=== PATIENT | male | born 1950 | race Caucasian/White ===

== ENCOUNTER 2022-04-01 15:42 | Inpatient (IN) ==
[2022-04-01 17:40] LABS: Basophils # (auto) 0.05 K/uL (0-0.2); Basophils % (auto) 0.3 %; Eosinophils # (auto) 0.12 K/uL (0-0.50); Eosinophils % (auto) 0.8 %; Hematocrit (blood only) 41.7 % (40.1-51.0); Hemoglobin 15.6 g/dl (14.0-18.0); Immature Granulocytes # (auto) 0.14 K/uL (0.00-0.02); Lymphocytes # (auto) 1.41 K/uL (1.2-3.4); Lymphocytes % (auto) 9.8 %; Mean Corpuscular Hemoglobin 34.8 pg (25.0-34.0); Mean Corpuscular Hgb Conc 37.4 g/dL (32.0-36.0); Mean Corpuscular Volume 93.1 fL (80.0-100.0); Mean Platelet Volume 10.4 fL (9.4-12.4); Monocytes # (auto) 1.16 K/uL (0.24-0.82); Neutrophils # (auto) 11.57 K/uL (1.4-6.5); Neutrophils % (auto) 80.1 %; Platelet Count 168 K/uL (130-400); RDW Coefficient of Variation 12.4 % (11.5-14.5); RDW Standard Deviation 42.3 fL (36.4-46.3); Red Blood Count 4.48 M/uL (4.63-6.08); White Blood Count 14.45 K/ul (4.8-10.8)
[2022-04-01 17:52] LABS: INR 1.2 (0.9-1.1); Partial Thromboplastin Time 26.7 Seconds (21.0-31.0)
[2022-04-01 18:36] LABS: Albumin Globulin Ratio 1.3 (0.9-2); Albumin Level 4.7 gm/dl (3.4-5.0); BUN Creatinine Ratio 24.6 (10-20); Bilirubin,Total 1.3 mg/dl (0.2-1.0); Calcium 9.9 mg/dl (8.5-10.1); Creatinine Clr Calc Pharmacy 64.2 ml/min; Est GFR (African American) 69.7 ml/min; Est GFR (Non-African American) 60.1 ml/min; Globulin 3.6 gm/dl (2.5-4.0); Potassium 4.5 mmol/L (3.5-5.1); Total Protein 8.3 gm/dl (6.0-8.3)
--- NOTE | 2022-04-01 20:22 | Emergency Department Note ---
Impression & Plan Pulmonary embolism, Edema, DVT (deep venous thrombosis), Hyperglycemia ED Provider Note NAME: MATEO JOSÉ AGE: 71 SEX: M : 1950 ARRIVES VIA: Walk-In INFORMANT: Patient ED PROVIDER(S): Bertin Heard DO CHIEF COMPLAINT: right leg swelling HPI: Patient is a 71-year-old male that presents to the ER for right lower extremity swelling. This started about 24 hours ago. He denies any chest pain or shortness of breath. No belly pain, nausea, vomiting, or diarrhea. He has pain behind his right knee and following this he started having swelling in his legs. No trauma. He does have a previous DVT back in . That was from a car trip. Denies any recent immobilization. No other exacerbating or remitting factors. Pain is currently a 6 out of 10. He took aspirin today to see if that would help with the pain and has mildly. ROS: See above HPI for pertinent positives & negatives. A total of 10 systems reviewed and were otherwise negative. PAST MEDICAL HISTORY:See Below PAST SURGICAL HISTORY:See Below FAMILY HISTORY:See Below SOCIAL HISTORY:See Below HOME MEDICATIONS:See Below ALLERGIES:See Below VITALS:See Below PHYSICAL EXAMINATION: GENERAL: Sitting up in bed, alert, well appearing, well nourished, no distress, non-toxic EYE EXAM: normal conjunctiva. OROPHARYNX: no exudate, no erythema, lips, buccal mucosa, and tongue normal and mucous membranes are moist NECK: supple, no nuchal rigidity, no adenopathy, non-tender LUNGS: Clear to auscultation. Normal chest wall mechanics HEART: no murmurs, S1 normal and S2 normal ABDOMEN: abdomen soft, non-tender, normo-active bowel sounds, no masses, no rebound or guarding. UPPER EXTREMITIES: upper extremities are grossly normal. LOWER EXTREMITIES: Right calf larger than left with mild pitting edema. DP and PT 2 out of 4. Gross sensation intact. Tenderness behind right popliteal dacia a. Flexion extension hip knee and ankle intact. NEURO EXAM: Normal sensorium, cranial nerves II-XII grossly intact, normal speech, no gross weakness of arms, no gross weakness of legs. MEDICAL DECISION MAKING: Patient is a 71-year-old male who presents the ER for swelling of the right lower extremity. IV was established blood work was obtained. Patient was persistently tachycardic while in the ER. Duplex of the right lower extremity shows extensive DVT. CT angio was obtained and shows a large right pulmonary artery PE. BMP with a mild leukocytosis of 14,000. No anemia. INR 1.2. BMP with elevated glucose 272. LFTs bilirubin was unremarkable. Troponin was negative. COVID was negative. CT angio of the chest per stat read showed extensive PE. Patient was placed on a heparin drip and bolus. No bleeding risk factors. No recent trauma, coughing up blood, vomiting blood, urinating blood or previous brain bleeds. Patient was updated bedside and admitted to the hospital for further work-up. Triage Nursing notes reviewed. Limited review of prior medical records performed Vital Signs: reviewed and remarkable for tachy Differential diagnosis: DVT, musculoskeletal, infection, joint effusion, trauma, lymphedema, idiopathic, CHF, as well as other pathologies. ER treatment provided: See below Diagnostics interpreted by me: ECG: Sinus tachycardia rate of 105 Left axis Inferior Q waves Septal Q waves QTC 438 Cardiac Monitoring: An order was placed for continuous cardiac monitoring. The monitor shows a rate of 101 with sinus rhythm. Laboratory studies: As stated above and show below. Imaging studies: CT angio of the chest as described above Duplex of the right lower extremity shows extensive DVT Consultation(s): Discussed with [facility] hospitalist Dr. Chapa approved for further evaluation Procedures: none Critical Care: I have personally spent 55 minutes of critical care time in the direct management of this patient. This includes bedside care, interpretation of diagnostic studies, and testing, discussion with consultants, patient, and family members, and other required patient management activities. This 55 minutes is in excess of all separately billable procedures. Past Med/Surg History Medical History Diabetes Dvt femoral (deep venous thrombosis) S/P LONG AIRLINE [id number] AND NO ISSUES SINCE Dyslipidemia Per records GERD (gastroesophageal reflux disease) UNDER CONTROL History of COVID-19 DX'D THIRD WEEK 04/2020 [facility] [place]-FEVER, FATIGUE-RECOVERED AT HOME-NO RESIDUAL SYMPTOMS Hypertension Per records Sleep apnea STOPPED USING CPAP Surgical History History of adenoidectomy History of colonoscopy History of nasal septoplasty History of tonsillectomy Family History Sister Family hx of colon cancer Other No family history of adverse response to anesthesia Social History Smoking Status: Unknown if ever smoked Second Hand Exposure: No; Hx Alcohol Use: Yes Hx Substance Use: No Preferred Language: Kosovan Communication Ability: Effective 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 Beliefs That Will Affect Care: None marital status: Current Living Situation: Spouse current occupational status: employed Feels Safe at Home: Yes Assistive Devices: Denture - Upper and Glasses Allergies Allergies Allergy/AdvReac Type Severity Reaction Status Date / Time No Known Drug Allergies Allergy Verified 04/01/22 22:51 Home Meds Home Medications Medication Instructions Recorded Confirmed aspirin 325 mg tablet 325 mg PO QAM 08/03/19 04/01/22 ascorbate calcium-bioflavonoid 1 tab PO 3XWK 10/11/20 04/01/22 1,000 mg-200 mg tablet ([place]oula-C with Bioflavonoids) cholecalciferol (vitamin D3) 125 125 mcg PO QAM 10/11/20 04/01/22 mcg (5,000 unit) tablet (Vitamin D3) coQ10 (ubiquinol) 100 mg capsule 100 mg PO QAM 10/11/20 04/01/22 multivitamin 1 tab PO QAM 10/11/20 04/01/22 cinnamon bark 500 mg capsule 1,000 mg PO DAILY 04/01/22 04/01/22 (Cinnamon) omega 3-bws-ild-fish oil 1,000 mg 1 cap PO DAILY 04/01/22 04/01/22 (120 mg-180 mg) capsule (Fish Oil) zinc acetate 50 mg (zinc) capsule 50 mg PO DAILY 04/01/22 04/01/22 Results & Data (ED) Vital Signs Vital Signs - 24 hr 04/01/22 15:50 04/01/22 20:21 04/01/22 22:14 Temperature 36.8 C Temperature Source Temporal Artery Scan Pulse Rate 116 H Pulse Rate [Finger] 108 H 123 H Pulse Rate from SpO2 Sensor Pulse Rhythm [Finger] Regular Pulse Strength [Finger] Normal Respiratory Rate 18 20 Respiratory Effort / Characteristics Non-Labored Non-Labored Spontaneous Respiratory Depth Normal Normal Respiratory Pattern Regular Blood Pressure 137/85 Blood Pressure [Left Arm] 155/92 H 154/64 H Blood Pressure Mean 102 Blood Pressure Mean [Left Arm] 113 94 Blood Pressure Position [Left Arm] Sitting Pulse Oximetry 95 94 98 Oxygen Delivery Method Room Air Room Air Room Air Sepsis Recent Fever Within 48 Hours No Sepsis New/Unexplained Change in Mental Status No Sepsis Action Taken by Nursing No Action Required 04/01/22 22:00 04/01/22 22:12 04/01/22 22:12 Temperature Temperature Source Pulse Rate 109 H 90 Pulse Rate [Finger] Pulse Rate from SpO2 Sensor 106 H 105 H Pulse Rhythm [Finger] Pulse Strength [Finger] Respiratory Rate 17 16 Respiratory Effort / Characteristics Respiratory Depth Respiratory Pattern Blood Pressure 139/75 Blood Pressure [Left Arm] Blood Pressure Mean 96 Blood Pressure Mean [Left Arm] Blood Pressure Position [Left Arm] Pulse Oximetry 95 96 Oxygen Delivery Method Sepsis Recent Fever Within 48 Hours Sepsis New/Unexplained Change in Mental Status Sepsis Action Taken by Nursing 04/01/22 22:30 04/01/22 22:30 04/01/22 23:00 Temperature Temperature Source Pulse Rate 107 H 106 H Pulse Rate [Finger] Pulse Rate from SpO2 Sensor 107 H 117 H Pulse Rhythm [Finger] Pulse Strength [Finger] Respiratory Rate 13 22 Respiratory Effort / Characteristics Respiratory Depth Respiratory Pattern Blood Pressure 128/68 Blood Pressure [Left Arm] Blood Pressure Mean 88 Blood Pressure Mean [Left Arm] Blood Pressure Position [Left Arm] Pulse Oximetry 95 81 L Oxygen Delivery Method Sepsis Recent Fever Within 48 Hours Sepsis New/Unexplained Change in Mental Status Sepsis Action Taken by Nursing 04/01/22 23:30 04/01/22 23:30 04/02/22 00:00 Temperature Temperature Source Pulse Rate 105 H 110 H Pulse Rate [Finger] Pulse Rate from SpO2 Sensor 105 H 111 H Pulse Rhythm [Finger] Pulse Strength [Finger] Respiratory Rate 23 15 Respiratory Effort / Characteristics Respiratory Depth Respiratory Pattern Blood Pressure 132/62 Blood Pressure [Left Arm] Blood Pressure Mean 85 Blood Pressure Mean [Left Arm] Blood Pressure Position [Left Arm] Pulse Oximetry 94 95 Oxygen Delivery Method Sepsis Recent Fever Within 48 Hours Sepsis New/Unexplained Change in Mental Status Sepsis Action Taken by Nursing 04/02/22 00:01 04/02/22 00:01 04/02/22 00:30 Temperature Temperature Source Pulse Rate 111 H 103 H Pulse Rate [Finger] Pulse Rate from SpO2 Sensor 113 H 104 H Pulse Rhythm [Finger] Pulse Strength [Finger] Respiratory Rate 19 24 Respiratory Effort / Characteristics Respiratory Depth Respiratory Pattern Blood Pressure 125/56 L Blood Pressure [Left Arm] Blood Pressure Mean 79 Blood Pressure Mean [Left Arm] Blood Pressure Position [Left Arm] Pulse Oximetry 94 96 Oxygen Delivery Method Sepsis Recent Fever Within 48 Hours Sepsis New/Unexplained Change in Mental Status Sepsis Action Taken by Nursing 04/02/22 00:30 04/02/22 01:00 04/02/22 01:00 Temperature Temperature Source Pulse Rate 108 H Pulse Rate [Finger] Pulse Rate from SpO2 Sensor 108 H Pulse Rhythm [Finger] Pulse Strength [Finger] Respiratory Rate 22 Respiratory Effort / Characteristics Respiratory Depth Respiratory Pattern Blood Pressure 119/61 114/62 Blood Pressure [Left Arm] Blood Pressure Mean 80 79 Blood Pressure Mean [Left Arm] Blood Pressure Position [Left Arm] Pulse Oximetry 95 Oxygen Delivery Method Sepsis Recent Fever Within 48 Hours Sepsis New/Unexplained Change in Mental Status Sepsis Action Taken by Nursing Laboratory Data Result diagrams: 04/01/22 17:26 04/01/22 17:26 Lab Results 04/01/22 04/01/22 04/01/22 Range/Units 17:26 17:26 17:26 WBC 14.45 H (4.8-10.8) K/ul RBC 4.48 L (4.63-6.08) M/uL Hgb 15.6 (14.0-18.0) g/dl Hct 41.7 (40.1-51.0) % MCV 93.1 (80.0-100.0) fL MCH 34.8 H (25.0-34.0) pg MCHC 37.4 H (32.0-36.0) g/dL RDW Std Deviation 42.3 (36.4-46.3) fL RDW Coeff of Carol 12.4 (11.5-14.5) % Plt Count 168 (130-400) K/uL MPV 10.4 (9.4-12.4) fL Immature Gran % (Auto) 1.0 % Neut % (Auto) 80.1 % Lymph % (Auto) 9.8 % [place] % (Auto) 8.0 % Eos % (Auto) 0.8 % Baso % (Auto) 0.3 % Neut # (Auto) 11.57 H (1.4-6.5) K/uL Lymph # (Auto) 1.41 (1.2-3.4) K/uL [place] # (Auto) 1.16 H (0.24-0.82) K/uL Eos # (Auto) 0.12 (0-0.50) K/uL Baso # (Auto) 0.05 (0-0.2) K/uL Immature Gran # (Auto) 0.14 H (0.00-0.02) K/uL PT 13.0 H (9.0-12.0) Seconds INR 1.2 H (0.9-1.1) APTT 26.7 (21.0-31.0) Seconds PTT Ratio 1.0 Sodium 133 L (136-145) mmol/L Potassium 4.5 (3.5-5.1) mmol/L Chloride 98 (98-107) mmol/L Carbon Dioxide 25 (21-32) mmol/L Anion Gap 10 (3-11) BUN 30 H (6-23) mg/dl Creatinine 1.22 (0.6-1.4) mg/dl Est Cr Clr Drug Dosing 64.2 ml/min Est GFR ( Amer) 69.7 ml/min Est GFR (Non-Af Amer) 60.1 ml/min BUN/Creatinine Ratio 24.6 H (10-20) Glucose 272 H (70-99(Fasting)) mg/dl Calcium 9.9 (8.5-10.1) mg/dl Total Bilirubin 1.3 H (0.2-1.0) mg/dl AST 33 (13-39) U/L ALT 35 (7-52) U/L Alkaline Phosphatase 81 (34-104) U/L Troponin I High Sens (0-20) pg/ml Total Protein 8.3 (6.0-8.3) gm/dl Albumin 4.7 (3.4-5.0) gm/dl Globulin 3.6 (2.5-4.0) gm/dl Albumin/Globulin Ratio 1.3 (0.9-2) SARS-CoV-2, RNA, NAAT (NEGATIVE) 04/01/22 04/01/22 Range/Units 21:45 21:45 WBC (4.8-10.8) K/ul RBC (4.63-6.08) M/uL Hgb (14.0-18.0) g/dl Hct (40.1-51.0) % MCV (80.0-100.0) fL MCH (25.0-34.0) pg MCHC (32.0-36.0) g/dL RDW Std Deviation (36.4-46.3) fL RDW Coeff of Carol (11.5-14.5) % Plt Count (130-400) K/uL MPV (9.4-12.4) fL Immature Gran % (Auto) % Neut % (Auto) % Lymph % (Auto) % [place] % (Auto) % Eos % (Auto) % Baso % (Auto) % Neut # (Auto) (1.4-6.5) K/uL Lymph # (Auto) (1.2-3.4) K/uL [place] # (Auto) (0.24-0.82) K/uL Eos # (Auto) (0-0.50) K/uL Baso # (Auto) (0-0.2) K/uL Immature Gran # (Auto) (0.00-0.02) K/uL PT (9.0-12.0) Seconds INR (0.9-1.1) APTT (21.0-31.0) Seconds PTT Ratio Sodium (136-145) mmol/L Potassium (3.5-5.1) mmol/L Chloride (98-107) mmol/L Carbon Dioxide (21-32) mmol/L Anion Gap (3-11) BUN (6-23) mg/dl Creatinine (0.6-1.4) mg/dl Est Cr Clr Drug Dosing ml/min Est GFR ( Amer) ml/min Est GFR (Non-Af Amer) ml/min BUN/Creatinine Ratio (10-20) Glucose (70-99(Fasting)) mg/dl Calcium (8.5-10.1) mg/dl Total Bilirubin (0.2-1.0) mg/dl AST (13-39) U/L ALT (7-52) U/L Alkaline Phosphatase (34-104) U/L Troponin I High Sens 10.7 (0-20) pg/ml Total Protein (6.0-8.3) gm/dl Albumin (3.4-5.0) gm/dl Globulin (2.5-4.0) gm/dl Albumin/Globulin Ratio (0.9-2) SARS-CoV-2, RNA, NAAT NEGATIVE (NEGATIVE) Administered Medications Heparin Sodium/Dextrose (Heparin Sodium/Dextrose) 25,000 units in 500 mls @ 29 mls/hr IV .[id number] [facility]; Protocol Stop: 05/01/22 21:44 Last Admin: 04/01/22 22:07 Dose: 1,450 units/hr, 29 mls/hr Documented By: QGV Co-signed By: BRIE Discontinued Medications Heparin Sodium (Porcine) (Heparin Sod (Porcine) 1000 Unit/Ml) 6,000 units IV NOW ONE Stop: 04/01/22 22:16 Last Admin: 04/01/22 22:07 Dose: 6,000 units Documented By: QGV Co-signed By: BRIE Ioversol (Optiray 320 500ml) 110 ml IV ONCE ONE Stop: 04/01/22 21:45 Last Admin: 04/01/22 21:44 Dose: 110 ml Documented By: DG Imaging Data Radiologist's Impression: Venous Doppler Study 04/01/22 19:36 US venous doppler LE RT CLINICAL HISTORY: swelling, eval DVT TECHNIQUE: Right lower extremity real-time compression venous ultrasound with Color Doppler imaging. Utilizing real-time ultrasonic imaging multiple real time high-resolution ultrasonic images with compression and noncompression maneuvers of the deep venous system in addition to color doppler imaging were performed from the common femoral vein through the proximal calf veins. COMPARISON: None available at the time of this dictation. FINDINGS: There is a venous thrombus extending from the right common femoral vein to the popliteal vein, proximal posterior tibial vein, and gastrocnemius. This appears occlusive. There is limited flow in the anterior tibial and peroneal veins. Impression: Occlusive thrombus extending from the right common femoral vein to the popliteal popliteal, proximal posterior tibial vein, and gastrocnemius vein. ACT 112: Negative or not required by law. Electronically signed by: Silvio Rowe M.D. 04/01/2022 8:48 PM Knee X-Ray 04/01/22 20:10 XR knee RT 3V CLINICAL HISTORY: r knee pain TECHNIQUE: 3 views of the right knee were obtained. Comparison: None available at the time of this dictation. FINDINGS: There is no evidence of an acute fracture. Joint spaces are well-preserved. No joint effusion is seen. A calcific density in the posterior knee may represent a fabella. IMPRESSION: No evidence of acute osseous injury. ACT 112: Negative or not required by law. Electronically signed by: Silvio Rowe M.D. 04/01/2022 8:35 PM Discharge Plan Visit Data Chief Complaint: Swelling/Edema to Extremity Stated Complaint: LOWER RIGHT LEG SWOLLEN DOUBLE SIZE ED Provider: Bertin Heard Discharge Problem: Pulmonary embolism, Edema, DVT (deep venous thrombosis), Hyperglycemia Forms Stand Alone Forms: My [facility] [place] [employer] Prescriptions Prescriptions: No Action aspirin 325 mg tablet 325 mg PO QAM zinc acetate 50 mg (zinc) Capsule 50 mg PO DAILY cinnamon bark [Cinnamon] 500 mg Capsule 1,000 mg PO DAILY omega 0-eih-kkz-fish oil [Fish Oil] 1,000 mg (120 mg-180 mg) Capsule 1 cap PO DAILY multivitamin Tablet 1 tab PO QAM cholecalciferol (vitamin D3) [Vitamin D3] 125 mcg (5,000 unit) Tablet 125 mcg PO QAM coQ10 (ubiquinol) 100 mg Capsule 100 mg PO QAM [place]oula-C with Bioflavonoids 1,000-200 mg Tablet 1 tab PO 3XWK Referrals Referrals: Jeffry Knapp MD [Primary Care Provider] -
--- NOTE | 2022-04-01 20:38 | XRay Report ---
XR knee RT 3V CLINICAL HISTORY: r knee pain TECHNIQUE: 3 views of the right knee were obtained. Comparison: None available at the time of this dictation. FINDINGS: There is no evidence of an acute fracture. Joint spaces are well-preserved. No joint effusion is seen . A calcific density in the posterior knee may represent a fabella. IMPRESSION: No evidence of acute osseous injury. ACT 112: Negative or not required by law. Electronically signed by: Silvio Rowe M.D. 04/01/2022 8:35 PM
--- NOTE | 2022-04-01 20:50 | Ultrasound Report ---
US venous doppler LE RT CLINICAL HISTORY: swelling, eval DVT TECHNIQUE: Right lower extremity real-time compression venous ultrasound with Color Doppler imaging. Utilizing real-time ultrasonic imaging multiple real time high-resolution ultrasonic images with comp ression and noncompression maneuvers of the deep venous system in addition to color doppler imaging w ere performed from the common femoral vein through the proximal calf veins. COMPARISON: None available at the time of this dictation. FINDINGS: There is a venous thrombus extending from the right common femoral vein to the popliteal vein, proxim al posterior tibial vein, and gastrocnemius. This appears occlusive. There is limited flow in the ant erior tibial and peroneal veins. Impression: Occlusive thrombus extending from the right common femoral vein to the popliteal popliteal, proximal posterior tibial vein, and gastrocnemius vein. ACT 112: Negative or not required by law. Electronically signed by: Silvio Rowe M.D. 04/01/2022 8:48 PM
[2022-04-01] MEDS ORDERED: Heparin IV Adult Wt-Based Standard WITH Bolus Protocol IV STA (21:18)
[2022-04-01] MEDS ORDERED: HEPARIN SOD (PORCINE) 1000 UNIT/ML IV ONE ×2 (21:33→22:15)
[2022-04-01] MEDS ORDERED: OPTIRAY 320 500ml IV ONE (21:44)
[2022-04-01] MEDS: HEPARIN SODIUM/DEXTROSE 25,000 UNITS/500 ML BAG IV SCH (22:07)
--- NOTE | 2022-04-02 01:59 | History and Physical Report ---
DATE OF ADMISSION: 04/01/2022. CHIEF COMPLAINT: Lower extremity edema, found to have DVT and PE. HISTORY OF PRESENT ILLNESS: A 71-year-old male with past medical history significant for type 2 diabetes, hyperlipidemia, obstructive sleep apnea, difficult intubation, high triglycerides, history of DVT long time back. Presents with right lower extremity swelling since yesterday, pain in the leg. Came to the ER. Currently, also feeling somehow little bit short of breath. Denies any chest pain, no fevers, no nausea, no vomiting, no abdominal pain. Normal bowel and bladder movements. No blood in the stools or black stools. No headache, no blurred visions, no earache, no runny nose, no sore throat. Appetite is okay. Resting comfortably, hemodynamically stable, saturating okay. ALLERGIES: No known drug allergies. PAST MEDICAL HISTORY: As mentioned above. PAST SURGICAL HISTORY: Colonoscopy, colonoscopy with biopsy, tonsillectomy and adenoidectomy, repair of nasal septum. MEDICATIONS: The patient is on aspirin 325 mg p.o. daily, vitamin D 125 mcg p.o. daily, multivitamins 1 tablet p.o. daily, fish oil 1 capsule p.o. daily, zinc acetate 50 mg p.o. daily. FAMILY HISTORY: Significant for father has heart disorder; mother has thyroid disease; brother has sleep apnea; sister has sleep apnea. SOCIAL HISTORY: , quit smoking in 1996, smoked 1 pack a day for 30 years. Alcohol, social drinking. No drug use. REVIEW OF SYSTEMS: As per HPI. Rest of the review of systems is negative. PHYSICAL EXAMINATION: GENERAL: The patient is of moderate build, not in acute distress. VITAL SIGNS: Temperature 36.8, pulse 108, respiratory rate 20, blood pressure 154/64, oxygen 98% on room air. HEENT: Pupils equal, round and reactive to light. Oral mucosa moist. NECK: No JVD. No neck masses. CARDIOVASCULAR: S1 and S2 heard. No murmur, no gallop. RESPIRATORY SYSTEM: Normal AP diameter. No accessory muscle use. No wheezing, no crackles. ABDOMEN: Soft, bowel sounds present, nontender, no distention. CENTRAL NERVOUS SYSTEM: Cranial nerves II through XII are grossly intact, nonfocal. EXTREMITIES: Right lower extremity swollen and slightly warm to palpation. CURRENT LABORATORY DATA: WBC 14.4, hemoglobin 15.6, hematocrit 41.7, platelets 168. PT 13, INR 1.2, APTT 26.7. Sodium 133, potassium 4.5, chloride 98, bicarbonate 25, BUN 30, creatinine 1.2, serum glucose 272, calcium 9.9, total bilirubin 1.3, AST 33, ALT 35, alkaline phosphatase 81. Troponin I high sensitivity 10.7. SARS-CoV-2 rapid test negative. IMAGING DATA: Knee x-ray, no acute findings. Venous Doppler, occlusive thrombus extending from the right common femoral vein to the popliteal, proximal posterior tibial, and gastrocnemius vein. CTA chest, preliminary report shows extensive pulmonary emboli in the right main pulmonary artery extending into the segmental and subsegmental branches. Positive for right heart strain. EKG: Sinus tachycardia with a rate of 105. ASSESSMENT AND PLAN: This is a 71-year-old male who presents with lower extremity swelling in the right lower extremity and found to have deep venous thrombosis and also pulmonary embolism. 1. Deep venous thrombosis and pulmonary embolism, extensive. Preliminary report of CAT scan showing right heart strain. His troponin level is okay. Started on IV heparin, which will be continued. Will follow the echocardiogram. Monitor in the tele. Consult cardiology in the a.m. Has remote history of deep venous thrombosis, may need to cut back on aspirin to 81 mg. 2. Sleep apnea: On CPAP at bedtime. 3. Diabetes: Placed on insulin sliding scale. Follow the blood sugars. 4. Deep venous thrombosis prophylaxis: On IV heparin. DISPOSITION: Closely monitor in the tele floor. Level 1 full code. Job ID: [id number] [facility]
[2022-04-02] MEDS ORDERED: NITROGLYCERIN SL 0.4 MG/TAB TAB SL PRN (02:12)
[2022-04-02] MEDS ORDERED: ACETAMINOPHEN 325 MG TAB PO PRN (02:12)
[2022-04-02] MEDS ORDERED: SODIUM CHLORIDE 0.9% 1000ML 1,000 ML IV SCH (02:12)
[2022-04-02] MEDS ORDERED: POLYETHYLENE (MIRALAX) 17 GM PACK PO PRN (02:12)
[2022-04-02 03:24] LABS: Appearance Urine Clear (Clear); Bacteria Urine Automated Negative (Negative); Bilirubin Urine Negative (Negative); Blood Urine Negative (Negative); Color Urine Yellow; Epithelial Cell Urine Auto 0-5 /lpf (0-5); Glucose Urine UA 3+ (Negative); Ketones Urine 2+ (Negative); Leukocyte Esterase Urine Negative (Negative); Nitrite Urine Negative (Negative); Protein Urine Trace (Negative); RBC Urine Automated 0-4 /hpf (0-4); Specific Gravity Urine > 1.045 (1.000-1.030); Urobilinogen Urine Negative (Negative); WBC Urine Automated 0 /hpf (0-5)
[2022-04-02 04:02] LABS: BUN Creatinine Ratio 21.6 (10-20); Creatinine Clr Calc Pharmacy 71.7 ml/min; Est GFR (African American) 86.5 ml/min; Est GFR (Non-African American) 74.6 ml/min; Magnesium 1.8 mg/dl (1.7-2.4); Potassium 4.2 mmol/L (3.5-5.1)
[2022-04-02 04:08] LABS: Troponin I High Sensitivity 11.2 pg/ml (0-20)
[2022-04-02 04:11] LABS: Partial Thromboplastin Ratio 2.7
[2022-04-02 04:40] LABS: Partial Thromboplastin Time 74.3 Seconds (21.0-31.0)
[2022-04-02 04:56] LABS: Basophils # (auto) 0.04 K/uL (0-0.2); Basophils % (auto) 0.3 %; Eosinophils # (auto) 0.29 K/uL (0-0.50); Eosinophils % (auto) 2.4 %; Hematocrit (blood only) 36.5 % (40.1-51.0); Immature Granulocytes # (auto) 0.12 K/uL (0.00-0.02); Lymphocytes # (auto) 1.42 K/uL (1.2-3.4); Lymphocytes % (auto) 11.9 %; Mean Corpuscular Hemoglobin 34.9 pg (25.0-34.0); Mean Corpuscular Hgb Conc 38.4 g/dL (32.0-36.0); Mean Platelet Volume 10.9 fL (9.4-12.4); Monocytes # (auto) 1.09 K/uL (0.24-0.82); Monocytes % (auto) 9.2 %; Neutrophils # (auto) 8.94 K/uL (1.4-6.5); Neutrophils % (auto) 75.2 %; Nucleated RBC # (auto) 0.02 K/uL (0-0); Nucleated RBC % (auto) 0.2 %; Platelet Count 143 K/uL (130-400); RDW Coefficient of Variation 12.4 % (11.5-14.5); RDW Standard Deviation 41.3 fL (36.4-46.3); Red Blood Count 4.01 M/uL (4.63-6.08)
[2022-04-02 06:41] LABS: Estimated Average Glucose 203 mg/dl; Hemoglobin A1C 8.7 % (4.5-5.6)
--- NOTE | 2022-04-02 07:43 | CT Scan Report ---
CT angio chest PE protocol CT DOSE: 809.71 mGy.cm HISTORY: 71 years-old Male with extensive dvt. Acute shortness breath with DVT TECHNIQUE: Multiple CTA images of the chest were obtained after the intravenous administration of 110 ml Optiray. Coronal and sagittal MIPS were obtained from the axial data set and were submitted for review. All measurements were obtained according to NASCET criteria. A dose lowering technique was u tilized adhering to the principles of ALARA. COMPARISON: Duplex venous Doppler study of same day FINDINGS: CTA: The heart is normal in size. No pericardial effusion. Extensive coronary artery calcifications. Ather osclerosis of the thoracic aorta without aneurysm or dissection. There is a large amount of acute casi earing emboli within the right main pulmonary artery extending into the right lobar, segmental and roth bsegmental branches. Additional segmental and subsegmental left-sided pulmonary emboli. Mild straight ening of the intraventricular septum. CT CHEST: Right sided thyroid goiter. No lymphadenopathy identified. No pneumothorax, pleural effusion, airspac e consolidation or overt pulmonary edema. No pulmonary infarct identified. There are a few punctate c alcified pulmonary granulomata noted. Central airways are patent. Hypodense paravertebral lesions of the lower thoracic spine measure up to 3.5 cm on image 95 series 4, possibly nerve sheath tumors. Mild nonspecific distal esophageal wall thickening with tiny hiatal hernia. Calcified granulomata of the spleen. Degenerative changes of the shoulders and spine. Right s houlder rotator cuff calcific tendinosis. No acute fracture identified. IMPRESSION: 1. Extensive pulmonary emboli as above. Straightening of the intraventricular septum is suspicious fo r associated right heart strain. 2. No pleural effusion or pulmonary infarct identified. 3. Paravertebral lesions of the lower thoracic spine, possibly nerve sheath tumors. ACT 112: Negative or not required by law. The above report was generated using voice recognition software. It may contain grammatical, syntax o r spelling errors. Electronically signed by: Ab Garcia M.D. 04/02/2022 7:40 AM
[2022-04-02] MEDS: CHOLECALCIFEROL 5,000 UNITS 125 MCG TAB PO SCH (08:06)
[2022-04-02] MEDS: MULTIVITAMIN TAB PO SCH (08:06)
[2022-04-02] MEDS: ASPIRIN 325 MG ECTAB PO SCH (08:07)
[2022-04-02] MEDS: INSULIN ASPART PER UNIT SC SCH ×4 (08:10→20:19)
[2022-04-02 11:04] LABS: Partial Thromboplastin Ratio 2.1
[2022-04-02 11:12] LABS: Partial Thromboplastin Time 57.9 Seconds (21.0-31.0)
--- NOTE | 2022-04-02 11:14 | Electrocardiogram Report ---
Test Reason : Blood Pressure : / mmHG Vent. Rate : 105 BPM Atrial Rate : 105 BPM P-R Int : 194 ms QRS Dur : 076 ms QT Int : 332 ms P-R-T Axes : 028 -27 012 degrees QTc Int : 438 ms Poor data quality, interpretation may be adversely affected Sinus tachycardia possible Inferior infarct , age undetermined Anteroseptal infarct , age undetermined Abnormal ECG When compared with ECG of 07-FEB-1997 06:59, Anteroseptal infarct is now Present Inferior infarct is now Present T wave amplitude has decreased in Anterior leads Confirmed by Senthil Patten ([id number]) on 04/02/2022 11:13:50 AM Referred By: REFERRED SELF Confirmed By:Carroll Patten
--- NOTE | 2022-04-02 14:28 | Hospitalist Progress Note ---
Date of Service April 02, 2022 Assessment & Plan (1) Pulmonary embolism: (2) DVT (deep venous thrombosis): Plan 71-year-old male with PMH of DVT [during/after long travel, status post Coumadin], T2DM, HLD, KALEY, difficult intubation, HLD presented 04/01 to our ED with complaint of lower extremity swelling especially RLE and was found to have DVT and PE in the ED. He is being managed for the following: DVT and PE, extensive: Admitting imaging: RLE Doppler positive for DVT. CTA chest positive for extensive PE bilaterally with mild straightening of the intraventricular septum. No pleural effusion or pulmonary infarct identified. 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 Admitting as with 15.6, troponin trends x2 are negative. 04/02 echo: Mild concentric LVH, EF 50 to 55%, borderline right ventricular enlar gement with RVSP mildly elevated at 30 to 40 mmHg. Patient started on heparin drip, continue same, patient interested in Eliquis, cost of Eliquis is $94 a month. Continue telemetry monitoring, cardiology consult for right heart strain. Patient will benefit from hematology/oncology eval as an outpatient for his hypercoagulability eval as well as paravertebral lesion of the lower thoracic spine on imaging. Sleep apnea: History of, on CPAP at bedtime Other chronic medical conditions: DM [on sliding scale while in hospital], history of DVT, HTN, HLD--> continue/resume home meds as and when able. DVT prophylaxis: Patient on heparin drip Full code Admission and Anticipated Discharge Date Admission Date: April 01, 2022 Subjective Patient seen and examined at bedside as a follow-up of DVT and PE. Patient was lying in bed, on room air, NAD, denies any new acute event overnight, patient's family member at bedside, reports eating okay and moving bowels okay, reports no shortness of breath or headache or dizziness, denies fever or chills or sore throat, denies other review of symptoms. Physical Exam Physical Exam: GENERAL: Alert and oriented x3. NAD, on RA. HEENT: No pallor, no icterus. Pupils equal, round and reactive to light. Oral mucosa moist. NECK: No JVD, no neck masses. HEART: S1 and S2 heard. Regular rate and rhythm. No murmur, no gallop. RESPIRATORY SYSTEM: Normal AP diameter. No accessory muscle use. No wheezing, no crackles. ABDOMEN: Soft, bowel sounds present, nontender, no distention. CENTRAL NERVOUS SYSTEM: No facial droop. Speech is clear. Obeys simple commands. Moves extremities. EXTREMITIES: 1+ BLE edema, no erythema seen. Results & Data Results & Data ([facility]) Vital Signs (Past 12 Hours) Vital Signs Temp Pulse Pulse Resp BP Pulse Ox O2 Del Method 04/02/22 06:10 98 H 04/02/22 11:31 36.9 C 80 18 117/75 95 Room Air 04/02/22 08:05 Room Air 04/02/22 07:46 36.9 C 99 H 18 122/76 93 Room Air
--- NOTE | 2022-04-02 14:46 | Cardiology Consultation ---
Date of Consultation April 02, 2022 Assessment & Plan (1) Pulmonary embolism: (2) DVT (deep venous thrombosis): Plan Patient is a 71-year-old male who presents with extensive DVT and submassive pulmonary emboli, hemodynamically without compromise, minimal oxygen demands. CT scan suggest right ventricular strain. Echocardiogram today demonstrates very minimal enlargement of the right ventricle with normal function and mild elevation of pulmonary pressures. No evidence of right ventricular overload or dysfunction Would treat as standard for pulmonary embolus, maintain telemetry additional 24 hours given mild strain Given past DVT and pattern of thickening of the aortic valve leaflets would consider hypercoagulable evaluation including antiphospholipid antibody EKG will be repeated today History of Present Illness Reason for Consultation: Pulmonary embolus Requesting Physician: Dr. Ramírez Attending Physician: Eleni Ramírez MD History of Present Illness Patient is a 71-year-old male with ongoing issues 1. Acute extensive right leg DVT, pulmonary embolus 2. Past provoked left DVT 1996 (long travel) 3. Type 2 diabetes mellitus 4. Hyperlipidemia on therapy Patient presents this admission noting having developed swelling in his right l eg acutely worse over the past 2 days with associated pain behind his knee. Mild breathlessness on presentation. Evaluation demonstrated extensive DVT and evidence of multiple pulmonary emboli. CT scan suggestion of pulmonary strain pattern Patient referred now for further evaluation Currently hemodynamically stable with no O2 requirements. No chest pains, no dizziness or lightheadedness. No fevers chills or unexplained infections. Notes no acute weight loss or gain notes no bleeding difficulties. He is currently anticoagulated appropriately with IV heparin. Denies any prior history of cardiac disease, rheumatic fever, scarlet fever or heart murmur. Possible "scarlatina as a child". No history of TIA or stroke. No fevers chills or unexplained infections currently. Family history notable for valvular heart disease in father, brother with recent coronary stents Allergies Allergy/AdvReac Type Severity Reaction Status Date / Time No Known Drug Allergies Allergy Verified 04/01/22 22:51 Home Medications Medication Instructions Recorded Confirmed Type aspirin 325 mg tablet 325 mg PO QAM 08/03/19 04/01/22 History ascorbate calcium-bioflavonoid 1 tab PO 3XWK 10/11/20 04/01/22 History 1,000 mg-200 mg tablet ([place]-C with Bioflavonoids) cholecalciferol (vitamin D3) 125 125 mcg PO QAM 10/11/20 04/01/22 History mcg (5,000 unit) tablet (Vitamin D3) coQ10 (ubiquinol) 100 mg capsule 100 mg PO QAM 10/11/20 04/01/22 History multivitamin 1 tab PO QAM 10/11/20 04/01/22 History cinnamon bark 500 mg capsule 1,000 mg PO DAILY 04/01/22 04/01/22 History (Cinnamon) omega 4-aay-mfz-fish oil 1,000 mg 1 cap PO DAILY 04/01/22 04/01/22 History (120 mg-180 mg) capsule (Fish Oil) zinc acetate 50 mg (zinc) capsule 50 mg PO DAILY 04/01/22 04/01/22 History apixaban 5 mg tablet (Eliquis) 5 mg PO BID #74 tabs 04/02/22 Rx Patient History Medical History Diabetes Dvt femoral (deep venous thrombosis) S/P LONG AIRLINE [id number] AND NO ISSUES SINCE Dyslipidemia Per records GERD (gastroesophageal reflux disease) UNDER CONTROL History of COVID-19 DX'D THIRD WEEK 04/2020 [place]-FEVER, FATIGUE-RECOVERED AT HOME-NO RESIDUAL SYMPTOMS Hypertension Per records Sleep apnea STOPPED USING CPAP Surgical History History of adenoidectomy History of colonoscopy History of nasal septoplasty History of tonsillectomy Family History Sister Family hx of colon cancer Other No family history of adverse response to anesthesia Social History Smoking Status: Former smoker Smoking End Date: 1996; Second Hand Exposure: No; Hx Alcohol Use: Yes Alcohol type: beer Hx Substance Use: No Preferred Language: [place] Communication Ability: Effective Geology Associate Required: No Beliefs That Will Affect Care: None marital status: Current Living Situation: Spouse Current Living Situation Comment: with current occupational status: employed Feels Safe at Home: Yes Safety Concerns: Feels Safe At This Time Assistive Devices: None Review of Systems Review of Systems: All systems reviewed & are unremarkable except as noted in HPI & below and All systems reviewed & are unremarkable except as noted in Subje ctive Physical Exam Constitutional: WD/WN, vitals as above + obese; no acute distress Eyes: PERRL, conjunctivae normal, anicteric sclerae ENMT: external ear and nose normal, oropharynx normal Neck: trachea midline, no thyromegaly Respiratory: normal respiratory effort, lungs clear to auscultation Cardiovascular: Rate/Rhythm: regular rate and regular rhythm Heart Sounds: normal S1 and normal S2; no gallop and no murmur Palpation: normal PMI Vessels: normal carotid upstroke and radial pulses present; no JVD and no carotid bruit Extremities: + calf tenderness and + edema (2-3+ edema right leg thigh and lower ) Gastrointestinal (Abdomen): normal bowel sounds, soft, nontender, no hepatosplenomegaly Musculoskeletal: no cyanosis or clubbing, extremities motor strength 5/5 Skin: no rashes, warm and dry Neurologic: PERRL, EOMI, accommodation nl, no face palsy, no dysarthria Psychiatric: A+Ox3, euthymic affect Results [facility]) Vital Signs (Past 12 Hours) Vital Signs Temp Pulse Pulse Resp BP Pulse Ox O2 Del Method 04/02/22 06:10 98 H 04/02/22 11:31 36.9 C 80 18 117/75 95 Room Air 04/02/22 08:05 Room Air 04/02/22 07:46 36.9 C 99 H 18 122/76 93 Room Air Laboratory Results Laboratory Results - last 24 hr 04/01/22 04/01/22 04/01/22 17:26 17:26 17:26 WBC 14.45 H RBC 4.48 L Hgb 15.6 Hct 41.7 MCV 93.1 MCH 34.8 H MCHC 37.4 H RDW Std Deviation 42.3 RDW Coeff of Carol 12.4 Plt Count 168 MPV 10.4 Immature Gran % (Auto) 1.0 Neut % (Auto) 80.1 Lymph % (Auto) 9.8 [place] % (Auto) 8.0 Eos % (Auto) 0.8 Baso % (Auto) 0.3 Neut # (Auto) 11.57 H Lymph # (Auto) 1.41 [place] # (Auto) 1.16 H Eos # (Auto) 0.12 Baso # (Auto) 0.05 Immature Gran # (Auto) 0.14 H Absolute Nucleated RBC Nucleated RBC % (auto) PT 13.0 H INR 1.2 H APTT 26.7 PTT Ratio 1.0 Sodium 133 L Potassium 4.5 Chloride 98 Carbon Dioxide 25 Anion Gap 10 BUN 30 H Creatinine 1.22 Est Cr Clr Drug Dosing 64.2 Est GFR ( Amer) 69.7 Est GFR (Non-Af Amer) 60.1 BUN/Creatinine Ratio 24.6 H Glucose 272 H POC Glucose Estimat Average Glucose Hemoglobin A1c Calcium 9.9 Magnesium Total Bilirubin 1.3 H AST 33 ALT 35 Alkaline Phosphatase 81 Troponin I High Sens Total Protein 8.3 Albumin 4.7 Globulin 3.6 Albumin/Globulin Ratio 1.3 Urine Color Urine Appearance Urine pH Ur Specific [place] Urine Protein Urine Glucose (UA) Urine Ketones Urine Blood Urine Nitrite Urine Bilirubin Urine Urobilinogen Ur Leukocyte Esterase Urine WBC (Auto) Urine RBC (Auto) U Hyaline Cast (Auto) U Epithel Cells (Auto) Urine Bacteria (Auto) SARS-CoV-2, RNA, NAAT 04/01/22 04/01/22 04/02/22 21:45 21:45 02:20 WBC RBC Hgb Hct MCV MCH MCHC RDW Std Deviation RDW Coeff of Carol Plt Count MPV Immature Gran % (Auto) Neut % (Auto) Lymph % (Auto) [place] % (Auto) Eos % (Auto) Baso % (Auto) Neut # (Auto) Lymph # (Auto) [place] # (Auto) Eos # (Auto) Baso # (Auto) Immature Gran # (Auto) Absolute Nucleated RBC Nucleated RBC % (auto) PT INR APTT PTT Ratio Sodium Potassium Chloride Carbon Dioxide Anion Gap BUN Creatinine Est Cr Clr Drug Dosing Est GFR ( Amer) Est GFR (Non-Af Amer) BUN/Creatinine Ratio Glucose POC Glucose 284 H Estimat Average Glucose Hemoglobin A1c Calcium Magnesium Total Bilirubin AST ALT Alkaline Phosphatase Troponin I High Sens 10.7 Total Protein Albumin Globulin Albumin/Globulin Ratio Urine Color Urine Appearance Urine pH Ur Specific [place] Urine Protein Urine Glucose (UA) Urine Ketones Urine Blood Urine Nitrite Urine Bilirubin Urine Urobilinogen Ur Leukocyte Esterase Urine WBC (Auto) Urine RBC (Auto) U Hyaline Cast (Auto) U Epithel Cells (Auto) Urine Bacteria (Auto) SARS-CoV-2, RNA, NAAT NEGATIVE 04/02/22 04/02/22 04/02/22 03:32 03:32 03:32 WBC 11.90 H RBC 4.01 L Hgb 14.0 Hct 36.5 L MCV 91.0 MCH 34.9 H MCHC 38.4 H RDW Std Deviation 41.3 RDW Coeff of Carol 12.4 Plt Count 143 MPV 10.9 Immature Gran % (Auto) 1.0 Neut % (Auto) 75.2 Lymph % (Auto) 11.9 [place] % (Auto) 9.2 Eos % (Auto) 2.4 Baso % (Auto) 0.3 Neut # (Auto) 8.94 H Lymph # (Auto) 1.42 [place] # (Auto) 1.09 H Eos # (Auto) 0.29 Baso # (Auto) 0.04 Immature Gran # (Auto) 0.12 H Absolute Nucleated RBC 0.02 H Nucleated RBC % (auto) 0.2 PT INR APTT 74.3 H* PTT Ratio 2.7 Sodium 133 L Potassium 4.2 Chloride 99 Carbon Dioxide 26 Anion Gap 8 BUN 22 Creatinine 1.02 Est Cr Clr Drug Dosing 71.7 Est GFR ( Amer) 86.5 Est GFR (Non-Af Amer) 74.6 BUN/Creatinine Ratio 21.6 H Glucose 286 H POC Glucose Estimat Average Glucose Hemoglobin A1c Calcium 9.0 Magnesium 1.8 Total Bilirubin AST ALT Alkaline Phosphatase Troponin I High Sens 11.2 Total Protein Albumin Globulin Albumin/Globulin Ratio Urine Color Urine Appearance Urine pH Ur Specific [place] Urine Protein Urine Glucose (UA) Urine Ketones Urine Blood Urine Nitrite Urine Bilirubin Urine Urobilinogen Ur Leukocyte Esterase Urine WBC (Auto) Urine RBC (Auto) U Hyaline Cast (Auto) U Epithel Cells (Auto) Urine Bacteria (Auto) SARS-CoV-2, RNA, NAAT 04/02/22 04/02/22 04/02/22 03:32 07:22 10:24 WBC RBC Hgb Hct MCV MCH MCHC RDW Std Deviation RDW Coeff of [place] Plt Count MPV Immature Gran % (Auto) Neut % (Auto) Lymph % (Auto) [place] % (Auto) Eos % (Auto) Baso % (Auto) Neut # (Auto) Lymph # (Auto) [place] # (Auto) Eos # (Auto) Baso # (Auto) Immature Gran # (Auto) Absolute Nucleated RBC Nucleated RBC % (auto) PT INR APTT 57.9 H* PTT Ratio 2.1 Sodium Potassium Chloride Carbon Dioxide Anion Gap BUN Creatinine Est Cr Clr Drug Dosing Est GFR ( Amer) Est GFR (Non-Af Amer) BUN/Creatinine Ratio Glucose POC Glucose 273 H Estimat Average Glucose 203 Hemoglobin A1c 8.7 H Calcium Magnesium Total Bilirubin AST ALT Alkaline Phosphatase Troponin I High Sens Total Protein Albumin Globulin Albumin/Globulin Ratio Urine Color Urine Appearance Urine pH Ur Specific [place] Urine Protein Urine Glucose (UA) Urine Ketones Urine Blood Urine Nitrite Urine Bilirubin Urine Urobilinogen Ur Leukocyte Esterase Urine WBC (Auto) Urine RBC (Auto) U Hyaline Cast (Auto) U Epithel Cells (Auto) Urine Bacteria (Auto) SARS-CoV-2, RNA, NAAT 04/02/22 04/02/22 11:09 Unknown WBC RBC Hgb Hct MCV MCH MCHC RDW Std Deviation RDW Coeff of Carol Plt Count MPV Immature Gran % (Auto) Neut % (Auto) Lymph % (Auto) [place] % (Auto) Eos % (Auto) Baso % (Auto) Neut # (Auto) Lymph # (Auto) [place] # (Auto) Eos # (Auto) Baso # (Auto) Immature Gran # (Auto) Absolute Nucleated RBC Nucleated RBC % (auto) PT INR APTT PTT Ratio Sodium Potassium Chloride Carbon Dioxide Anion Gap BUN Creatinine Est Cr Clr Drug Dosing Est GFR ( Amer) Est GFR (Non-Af Amer) BUN/Creatinine Ratio Glucose POC Glucose 261 H Estimat Average Glucose Hemoglobin A1c Calcium Magnesium Total Bilirubin AST ALT Alkaline Phosphatase Troponin I High Sens Total Protein Albumin Globulin Albumin/Globulin Ratio Urine Color Yellow Urine Appearance Clear Urine pH 5.0 Ur Specific [place] > 1.045 H Urine Protein Trace H Urine Glucose (UA) 3+ H Urine Ketones 2+ H Urine Blood Negative Urine Nitrite Negative Urine Bilirubin Negative Urine Urobilinogen Negative Ur Leukocyte Esterase Negative Urine WBC (Auto) 0 Urine RBC (Auto) 0-4 U Hyaline Cast (Auto) 1-5 U Epithel Cells (Auto) 0-5 Urine Bacteria (Auto) Negative SARS-CoV-2, RNA, NAAT Diagnostic Findings Echocardiogram 04/02/2022 Normal overall LV systolic function Borderline right ventricular enlargement without compromise and function. There is indirect evidence of mild elevation in pulmonary pressures There is moderate thickening of the edges of the aortic valve leaflets without stenosis or valvular insufficiency
[2022-04-02] MEDS: HEPARIN SODIUM/DEXTROSE 25,000 UNITS/500 ML BAG IV SCH (16:22)
--- NOTE | 2022-04-02 18:31 | Electrocardiogram Report ---
Test Reason : Blood Pressure : / mmHG Vent. Rate : 087 BPM Atrial Rate : 087 BPM P-R Int : 192 ms QRS Dur : 086 ms QT Int : 366 ms P-R-T Axes : 040 -28 008 degrees QTc Int : 440 ms Normal sinus rhythm possible Inferior infarct (cited on or before 01-APR-2022) Abnormal ECG When compared with ECG of 01-APR-2022 21:51, No significant change was found Confirmed by Senthil Patten ([id number] on 04/02/2022 6:30:48 PM Referred By: REFERRED SELF Confirmed By:Carroll Patten
[2022-04-03 05:18] LABS: Hematocrit (blood only) 34.2 % (40.1-51.0); Hemoglobin 12.8 g/dl (14.0-18.0); Mean Corpuscular Hemoglobin 34.7 pg (25.0-34.0); Mean Corpuscular Hgb Conc 37.4 g/dL (32.0-36.0); Mean Corpuscular Volume 92.7 fL (80.0-100.0); Mean Platelet Volume 10.6 fL (9.4-12.4); Platelet Count 132 K/uL (130-400); RDW Coefficient of Variation 12.1 % (11.5-14.5); RDW Standard Deviation 41.4 fL (36.4-46.3); Red Blood Count 3.69 M/uL (4.63-6.08); White Blood Count 8.74 K/ul (4.8-10.8)
[2022-04-03 05:46] LABS: Partial Thromboplastin Ratio 2.1
[2022-04-03 05:47] LABS: BUN Creatinine Ratio 15.3 (10-20); Calcium 8.4 mg/dl (8.5-10.1); Creatinine Clr Calc Pharmacy 89.1 ml/min; Est GFR (Non-African American) 88.9 ml/min; Magnesium 1.8 mg/dl (1.7-2.4); Phosphorus 2.3 mg/dl (2.5-4.9); Potassium 4.2 mmol/L (3.5-5.1)
[2022-04-03 05:48] LABS: Partial Thromboplastin Time 56.7 Seconds (21.0-31.0)
[2022-04-03] MEDS: MULTIVITAMIN TAB PO SCH (09:03)
[2022-04-03] MEDS: ASPIRIN 325 MG ECTAB PO SCH (09:03)
[2022-04-03] MEDS: POT PHOSPHATE MONOBASIC W/ SOD TAB PO SCH ×3 (09:03→17:11)
[2022-04-03] MEDS: CHOLECALCIFEROL 5,000 UNITS 125 MCG TAB PO SCH (09:03)
[2022-04-03] MEDS: INSULIN ASPART PER UNIT SC SCH ×3 (09:05→17:14)
[2022-04-03] MEDS: HEPARIN SODIUM/DEXTROSE 25,000 UNITS/500 ML BAG IV SCH (09:07)
--- NOTE | 2022-04-03 15:37 | Discharge Summary ---
Date of Service April 03, 2022 Admission HPI Per Admitting Provider DATE OF ADMISSION: 04/01/2022. CHIEF COMPLAINT: Lower extremity edema, found to have DVT and PE. HISTORY OF PRESENT ILLNESS: A 71-year-old male with past medical history significant for type 2 diabetes, hyperlipidemia, obstructive sleep apnea, difficult intubation, high triglycerides, history of DVT long time back. Presents with right lower extremity swelling since yesterday, pain in the leg. Came to the ER. Currently, also feeling somehow little bit short of breath. Denies any chest pain, no fevers, no nausea, no vomiting, no abdominal pain. Normal bowel and bladder movements. No blood in the stools or black stools. No headache, no blurred visions, no earache, no runny nose, no sore throat. Appetite is okay. Resting comfortably, hemodynamically stable, saturating okay. ALLERGIES: No known drug allergies. PAST MEDICAL HISTORY: As mentioned above. PAST SURGICAL HISTORY: Colonoscopy, colonoscopy with biopsy, tonsillectomy and adenoidectomy, repair of nasal septum. MEDICATIONS: The patient is on aspirin 325 mg p.o. daily, vitamin D 125 mcg p.o. daily, multivitamins 1 tablet p.o. daily, fish oil 1 capsule p.o. daily, zinc acetate 50 mg p.o. daily. FAMILY HISTORY: Significant for father has heart disorder; mother has thyroid disease; brother has sleep apnea; sister has sleep apnea. SOCIAL HISTORY: , quit smoking in 1996, smoked 1 pack a day for 30 years. Alcohol, social drinking. No drug use. REVIEW OF SYSTEMS: As per HPI. Rest of the review of systems is negative. Admission Exam Per Admitting Provider GENERAL: The patient is of moderate build, not in acute distress. VITAL SIGNS: Temperature 36.8, pulse 108, respiratory rate 20, blood pressure 154/64, oxygen 98% on room air. HEENT: Pupils equal, round and reactive to light. Oral mucosa moist. NECK: No JVD. No neck masses. CARDIOVASCULAR: S1 and S2 heard. No murmur, no gallop. RESPIRATORY SYSTEM: Normal AP diameter. No accessory muscle use. No wheezing, no crackles. ABDOMEN: Soft, bowel sounds present, nontender, no distention. CENTRAL NERVOUS SYSTEM: Cranial nerves II through XII are grossly intact, nonfo denise. EXTREMITIES: Right lower extremity swollen and slightly warm to palpation. 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 NAD, on RA. HEENT: No pallor, no icterus. Pupils equal, round and reactive to light. Oral mucosa moist. NECK: No JVD, no neck masses. HEART: S1 and S2 heard. Regular rate and rhythm. No murmur, no gallop. RESPIRATORY SYSTEM: Normal AP diameter. No accessory muscle use. No wheezing, no crackles. ABDOMEN: Soft, bowel sounds present, nontender, no distention. CENTRAL NERVOUS SYSTEM: No facial droop. Speech is clear. Obeys simple commands. Moves extremities. EXTREMITIES: 1+ RLE edema, no erythema seen. Discharge Data Allergies Allergy/AdvReac Type Severity Reaction Status Date / Time No Known Drug Allergies Allergy Verified 04/01/22 22:51 Consultations 04/01/22 21:31 ED Decision to Admit Stat 04/02/22 12:23 Consult Cardiology Routine Ordered Studies 04/01/22 19:36 US venous doppler LE RT Stat 04/01/22 21:04 CT angio chest PE protocol Stat Hospital Course (1) Pulmonary embolism: (2) DVT (deep venous thrombosis): Plan 71-year-old male with PMH of DVT [during/after long travel, status post Coumadin], T2DM, HLD, KALEY, difficult intubation, HLD presented 04/01 to our ED with complaint of lower extremity swelling especially RLE and was found to have DVT and PE in the ED. He is being managed for the following: DVT and PE, extensive: Admitting imaging: RLE Doppler positive for DVT. CTA chest positive for extensive PE bilaterally with mild straightening of the intraventricular septum. No pleural effusion or pulmonary infarct identified. 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 Admitting as with 15.6, troponin trends x2 are negative. 04/02 echo: Mild concentric LVH, EF 50 to 55%, borderline right ventricular enlargement with RVSP mildly elevated at 30 to 40 mmHg. Patient started on heparin drip, Pt agreeable to eliquis cost, transition to eliquis prior to DC today evening. Pt to take eliquis 10 mg twice a day for 7 days f/b 5 mg twice a day. Pt made aware. Reports eliquis is already collected and is at home. Cardio evaled due to rt heart strain, appreciate recs. Pt's aspirin reduced to 81 mg daily. Pt was taking 325 mg aspirin daily as pr evention against clot per pt. Pt reports feeling better, moving around ok and independent, would like to go home. HR better controlled. Patient will benefit from hematology/oncology eval as an outpatient for his hypercoagulability eval as well as paravertebral lesion of the lower thoracic spine on imaging. Pt made aware. Sleep apnea: History of, on CPAP at bedtime Other chronic medical conditions: DM [on sliding scale while in hospital], history of DVT, HTN, HLD--> continue/resume home meds as and when able. DVT prophylaxis: Patient on heparin drip Full code Patient being discharged home with following instruction at the point of discharge: Follow-up with your primary care physician within a week time and likely you will need blood test CBC/CMP. 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 As discussed at the bedside, your aspirin dose will be reduced to 81 mg daily. Also you are supposed to take 2 tablets of Eliquis twice a day for 7 days followed by 1 tablet twice a day. Take your medications as prescribed. Home Health Attestation I certify that this patient is under my care and that I, or a physicians plastic surgery assistant working with me, had a face to-face encounter that meets the home health [id number] encounter requirements with this patient. The encounter with the patient was in whole, or in part, for the following medical condition, which is the primary reason for home health care (list medical condition): I certify that, based on my findings, the following services are medically necessary home health services: My clinical findings support the need for the above services because: Further, I certify that my clinical findings support that this patient is homebound (i.e. absences from home require considerable and taxing effort and are for medical reasons or nondenominational services or infrequently or of short duration when for other reasons) because: Certification for Home Health Services: Based on the above findings, I certify that this patient is confined to the home and needs intermittent residential care, physical therapy and/or speech therapy or continues to need occupational therapy. The patient is under my care, and I have initiated the establishment of the plan of care. This patient will be followed by a physician who will periodically review the plan of care. 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 As discussed at the bedside, your aspirin dose will be reduced to 81 mg daily. Also you are supposed to take 2 tablets of Eliquis twice a day for 7 days followed by 1 tablet twice a day. Take your medications as prescribed. Pending Studies at Discharge: No Stand-Alone Forms: My [facility], Smoking Cessation Medications and DC Order Prescriptions: New Eliquis 5 mg tablet 5 mg PO BID Qty: 74 0RF Rx Instructions: 10 mg twice a day for 7 days followed by 5 mg twice a day. aspirin 81 mg capsule 81 mg PO DAILY Qty: 30 0RF Continued zinc acetate 50 mg (zinc) Capsule 50 mg PO DAILY omega [id number] oil [Fish Oil] 1,000 mg (120 mg-180 mg) Capsule 1 cap PO DAILY multivitamin Tablet 1 tab PO QAM cholecalciferol (vitamin D3) [Vitamin D3] 125 mcg (5,000 unit) Tablet 125 mcg PO QAM coQ10 (ubiquinol) 100 mg Capsule 100 mg PO QAM Discontinued aspirin 325 mg tablet 325 mg PO QAM cinnamon bark [Cinnamon] 500 mg Capsule 1,000 mg PO DAILY Roula-C with Bioflavonoids 1,000-200 mg Tablet 1 tab PO [id number] Discharge Orders: Discharge Order (Routine); Ordered 04/03/22 Ordered By: Eleni Alcaraz/Other Patient Handouts: High Blood Sugar (Hyperglycemia), Managing Type 2 Diabetes, How to Check Your Blood Sugar Admission Data Admit Date/Time: 04/01/22 23:39 Attending Provider: Eleni Ramírez Admit Provider: Mike Rodriguez Primary Care Provider: Jeffry Knapp Other Providers: Mike Rodirguez ; Norman Bull
[2022-04-03] MEDS ORDERED: STOP HEPARIN DRIP ONE (18:00)
[2022-04-03] MEDS ORDERED: APIXABAN 5 MG TABLET PO SCH (18:00)
== END 2022-04-03 18:43 | disposition home or self-care (01) | DRG 299 ==
LOC: ED 15:42 → 2S 23:39 → SUATTDRO 23:39 → 2S 04-02 02:03

== ENCOUNTER 2022-04-16 18:48 | Observation (INO) ==
--- NOTE | 2022-04-16 19:23 | Emergency Department Note ---
History of Present Illness General Chief complaint: Swelling/Edema to Extremity Stated complaint: LEG SWELLING WITH RASH,REFERRED BY DOC Time Seen by Provider: 04/16/22 18:59 History of Present Illness Provider complaint: Right leg swelling and rash Onset (ago): day(s) 4 Location: lower extremity and right Radiation: non-radiation Severity: mild Pain Consistency: + constant Maximum Pain Intensity: 5 Associated symptoms: + rash; no chest pain, no cough, no fever/chills, no headaches, no nausea/vomiting, no shortness of breath or no syncope 71-year-old male presents emergency department for right lower extremity swe lling and rash. Patient states that he noticed this started 4 days ago. Denies any fevers. No new soaps or detergents. No chest pain or difficulty breathing. He states he went to his PCPs office in [place] who called ahead for him to get blood work done here today. He reports that the rash is itching. He reports the rash goes from his ankle all the way up to his thigh. 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 No trauma. Home Medications Medication Instructions Recorded Confirmed Type cholecalciferol (vitamin D3) 125 125 mcg PO QAM 10/11/20 04/16/22 History mcg (5,000 unit) tablet (Vitamin D3) coQ10 (ubiquinol) 100 mg capsule 100 mg PO QAM 10/11/20 04/16/22 History multivitamin 1 tab PO QAM 10/11/20 04/16/22 History omega 9-gdn-sfg-fish oil 1,000 mg 1 cap PO DAILY 04/01/22 04/16/22 History (120 mg-180 mg) capsule (Fish Oil) zinc acetate 50 mg (zinc) capsule 50 mg PO DAILY 04/01/22 04/16/22 History apixaban 5 mg tablet (Eliquis) 5 mg PO BID #74 tabs 04/02/22 04/16/22 Rx aspirin 81 mg capsule 81 mg PO DAILY #30 caps 04/03/22 04/16/22 Rx diclofenac sodium 75 mg 75 mg PO BID 04/16/22 04/16/22 History tablet,delayed release torsemide 20 mg tablet 20 mg PO DAILY 04/16/22 04/16/22 History Allergies Allergy/AdvReac Type Severity Reaction Status Date / Time No Known Allergies Allergy Verified 04/16/22 19:15 Past Med/Surg History Medical History Diabetes Dvt femoral (deep venous thrombosis) S/P LONG AIRLINE [id number] AND NO ISSUES SINCE Dyslipidemia Per records GERD (gastroesophageal reflux disease) UNDER CONTROL History of COVID-19 DX'D THIRD WEEK 04/2020 [facility] [place]-FEVER, FATIGUE-RECOVERED AT HOME-NO RESIDUAL SYMPTOMS Hypertension Per records Sleep apnea STOPPED USING CPAP Surgical History History of adenoidectomy History of colonoscopy History of nasal septoplasty History of tonsillectomy Family History Sister Family hx of colon cancer Other No family history of adverse response to anesthesia Social History Smoking Status: Former smoker Second Hand Exposure: No; Hx Alcohol Use: Yes Alcohol type: beer Hx Substance Use: No Preferred Language: Tajik Communication Ability: Effective Public Relations Sales Marketing Required: No Beliefs That Will Affect Care: None marital status: Current Living Situation: Spouse Current Living Situation Comment: with current occupational status: employed Feels Safe at Home: Yes Assistive Devices: None Review of Systems A total of 10 systems reviewed and were otherwise negative Physical Exam Vital Signs Vital Signs - 24 hr 04/16/22 18:51 04/16/22 19:34 04/16/22 19:34 Temperature 36.4 C L Temperature Source Temporal Artery Scan Pulse Rate 100 H Pulse Rate [Apical] 81 Pulse Rhythm [Apical] Regular Pulse Strength [Apical] Normal Respiratory Rate 20 18 Respiratory Effort / Characteristics Non-Labored Non-Labored Respiratory Depth Normal Normal Respiratory Pattern Regular Regular Blood Pressure 143/95 H Blood Pressure [Right Arm] 141/82 H Blood Pressure Mean 111 Blood Pressure Mean [Right Arm] 101 Blood Pressure Position Sitting Blood Pressure Position [Right Arm] Sitting Pulse Oximetry 95 96 96 Oxygen Delivery Method Room Air Room Air Room Air Sepsis Recent Fever Within 48 Hours No Sepsis New/Unexplained Change in Mental Status No Sepsis Action Taken by Nursing No Action Required 04/16/22 21:00 Temperature Temperature Source Pulse Rate Pulse Rate [Apical] 87 Pulse Rhythm [Apical] Regular Pulse Strength [Apical] Normal Respiratory Rate 14 Respiratory Effort / Characteristics Non-Labored Respiratory Depth Normal Respiratory Pattern Regular Blood Pressure Blood Pressure [Right Arm] 135/77 Blood Pressure Mean Blood Pressure Mean [Right Arm] 96 Blood Pressure Position Blood Pressure Position [Right Arm] Sitting Pulse Oximetry 97 Oxygen Delivery Method Room Air Sepsis Recent Fever Within 48 Hours Sepsis New/Unexplained Change in Mental Status Sepsis Action Taken by Nursing Physical Exam GENERAL: He is oriented to person, place, and time. He appears well-developed and well-nourished. He does not appear distressed. HENT: Exam performed. - Head: Normocephalic and atraumatic. - Right Ear: External ear normal. No mastoid tenderness. - Left Ear: External ear normal. No mastoid tenderness. - Mouth/Throat: The oropharynx is clear and moist. No trismus in the jaw. No dental abscesses or uvula swelling. No oropharyngeal exudate or tonsillar abscesses. EYES: Conjunctivae and EOM are normal. Pupils are equal, round, and reactive to light. Right eye exhibits no discharge. Left eye exhibits no discharge. No scleral icterus. NECK: Normal range of motion. Neck supple. No JVD present. No spinous process tenderness present. No carotid bruit present. No rigidity. No tracheal deviation and normal range of motion present. No Brudzinski's sign and no Kernig's sign noted. CV: Normal rate, regular rhythm, normal heart sounds and intact distal pulses. Palpable radial pulses bue. PULM/CHEST: Effort normal and breath sounds normal. No respiratory distress. No stridor. He has no wheezes. He has no rales. - Chest Wall: He exhibits no tenderness. ABD: The abdomen is soft. Bowel sounds are normal. He has no distension. No mass is present. There is no tenderness. There is no rebound, no guarding, no Choi's sign and no tenderness at McBurney's point. Rovsig negative. MUSC/SKEL: Right lower extremity: 1+ pitting edema. Compartments of the right lower extremity are soft. LYMPH: No cervical adenopathy. NEURO: He is alert and oriented to person, place, and time. He has normal strength. No cranial nerve deficit or sensory deficit. Coordination and gait normal. GCS eye subscore is 4. GCS verbal subscore is 5. GCS motor subscore is 6. Cerebellar tests wnl. SKIN: Petechial rash over the right lower extremity from his ankle to his thigh. No rash on either soles of the feet. No rash on either palms of the hand. Nikolsky negative. PSYCH: He has a normal mood and affect. Behavior is normal. Judgment and thought content normal. Course Course 1858: The patient was evaluated in room B10. A complete history and physical exam was performed Cardiac monitoring: An order was placed for continuous cardiac monitoring. The monitor shows a rate of 100 with sinus rhythm 0: Vital signs stable. Labs show white blood cell count of 10.54. Hemoglobin 15. Platelet count 305. Coagulation studies are within normal limits. Creatinine is 1.87 more than double his previous creatinine earlier this month. Blood smear negative. Lyme screen negative. Patient continues to report that his leg is itching. He reports no headache. No fevers. Given the patient's petechial rash and his acute kidney injury[facility]ound of his kidneys and urinalysis ordered for his acute kidney injury. [facility] Administered Medications Sodium Chloride (Nss 1000ml) 1,000 mls @ 200 mls/hr IV .Q5H STA Stop: 04/17/22 02:19 Last Admin: 04/16/22 21:32 Dose: 200 mls/hr Documented By: ZAMZAM Discontinued Medications Diphenhydramine HCl (Diphenhydramine 50 Mg/Ml Vial) 25 mg IV NOW STA Stop: 04/16/22 21:08 Last Admin: 04/16/22 21:20 Dose: 25 mg Documented By: ZAMZAM Medical Decision Making Laboratory Data Result diagrams: 04/16/22 19:32 04/16/22 19:32 Lab Results 04/16/22 04/16/22 04/16/22 Range/Units 19:32 19:32 19:32 WBC 10.54 (4.8-10.8) K/ul RBC 4.28 L (4.63-6.08) M/uL Hgb 15.0 (14.0-18.0) g/dl Hct 39.6 L (40.1-51.0) % MCV 92.5 (80.0-100.0) fL MCH 35.0 H (25.0-34.0) pg MCHC 37.9 H (32.0-36.0) g/dL RDW Std Deviation 41.3 (36.4-46.3) fL RDW Coeff of Carol 12.2 (11.5-14.5) % Plt Count 305 (130-400) K/uL MPV 10.4 (9.4-12.4) fL Immature Gran % (Auto) 1.2 % Neut % (Auto) 69.8 % Lymph % (Auto) 16.2 % [place] % (Auto) 8.9 % Eos % (Auto) 3.3 % Baso % (Auto) 0.6 % Neut # (Auto) 7.35 H (1.4-6.5) K/uL Lymph # (Auto) 1.71 (1.2-3.4) K/uL [place] # (Auto) 0.94 H (0.24-0.82) K/uL Eos # (Auto) 0.35 (0-0.50) K/uL Baso # (Auto) 0.06 (0-0.2) K/uL Immature Gran # (Auto) 0.13 H (0.00-0.02) K/uL PT 13.2 H (9.0-12.0) Seconds INR 1.3 H (0.9-1.1) APTT 27.8 (21.0-31.0) Seconds PTT Ratio 1.0 Sodium 135 L (136-145) mmol/L Potassium 4.0 (3.5-5.1) mmol/L Chloride 98 (98-107) mmol/L Carbon Dioxide 26 (21-32) mmol/L Anion Gap 11 (3-11) BUN 49 H (6-23) mg/dl Creatinine 1.87 H (0.6-1.4) mg/dl Est Cr Clr Drug Dosing 41.0 ml/min Est GFR ( Amer) 41.6 ml/min Est GFR (Non-Af Amer) 35.9 ml/min BUN/Creatinine Ratio 26.2 H (10-20) Glucose 203 H (70-99(Fasting)) mg/dl Calcium 10.2 H (8.5-10.1) mg/dl Total Creatine Kinase 122 (30-223) U/L Troponin I High Sens 9.4 (0-20) pg/ml B-Natriuretic Peptide (0-100) pg/ml Lipase 21 (11-82) U/L Urine Color Urine Appearance (Clear) Urine pH (4.5-7.5) Ur Specific [place] (1.000-1.030) Urine Protein (Negative) Urine Glucose (UA) (Negative) Urine Ketones (Negative) Urine Blood (Negative) Urine Nitrite (Negative) Urine Bilirubin (Negative) Urine Urobilinogen (Negative) Ur Leukocyte Esterase (Negative) Anaplasma Smear See Comment Babesia Smear See Comment Lyme Disease IgG Ab (Negative) Lyme Disease IgM Ab (Negative) SARS-CoV-2, RNA, NAAT (NEGATIVE) 04/16/22 04/16/22 04/16/22 Range/Units 19:32 20:02 21:19 WBC (4.8-10.8) K/ul RBC (4.63-6.08) M/uL Hgb (14.0-18.0) g/dl Hct (40.1-51.0) % MCV (80.0-100.0) fL MCH (25.0-34.0) pg MCHC (32.0-36.0) g/dL RDW Std Deviation (36.4-46.3) fL RDW Coeff of Carol (11.5-14.5) % Plt Count (130-400) K/uL MPV (9.4-12.4) fL Immature Gran % (Auto) % Neut % (Auto) % Lymph % (Auto) % [place] % (Auto) % Eos % (Auto) % Baso % (Auto) % Neut # (Auto) (1.4-6.5) K/uL Lymph # (Auto) (1.2-3.4) K/uL [place] # (Auto) (0.24-0.82) K/uL Eos # (Auto) (0-0.50) K/uL Baso # (Auto) (0-0.2) K/uL Immature Gran # (Auto) (0.00-0.02) K/uL PT (9.0-12.0) Seconds INR (0.9-1.1) APTT (21.0-31.0) Seconds PTT Ratio Sodium (136-145) mmol/L Potassium (3.5-5.1) mmol/L Chloride (98-107) mmol/L Carbon Dioxide (21-32) mmol/L Anion Gap (3-11) BUN (6-23) mg/dl Creatinine (0.6-1.4) mg/dl Est Cr Clr Drug Dosing ml/min Est GFR ( Amer) ml/min Est GFR (Non-Af Amer) ml/min BUN/Creatinine Ratio (10-20) Glucose (70-99(Fasting)) mg/dl Calcium (8.5-10.1) mg/dl Total Creatine Kinase (30-223) U/L Troponin I High Sens (0-20) pg/ml B-Natriuretic Peptide 10 (0-100) pg/ml Lipase (11-82) U/L Urine Color Yellow Urine Appearance Clear (Clear) Urine pH 5.0 (4.5-7.5) Ur Specific [place] 1.018 (1.000-1.030) Urine Protein 1+ H (Negative) Urine Glucose (UA) Negative (Negative) Urine Ketones 1+ H (Negative) Urine Blood Negative (Negative) Urine Nitrite Negative (Negative) Urine Bilirubin Negative (Negative) Urine Urobilinogen Negative (Negative) Ur Leukocyte Esterase Negative (Negative) Anaplasma Smear Babesia Smear Lyme Disease IgG Ab Negative (Negative) Lyme Disease IgM Ab Negative (Negative) SARS-CoV-2, RNA, NAAT (NEGATIVE) 04/16/22 Range/Units 21:19 WBC (4.8-10.8) K/ul RBC (4.63-6.08) M/uL Hgb (14.0-18.0) g/dl Hct (40.1-51.0) % MCV (80.0-100.0) fL MCH (25.0-34.0) pg MCHC (32.0-36.0) g/dL RDW Std Deviation (36.4-46.3) fL RDW Coeff of Carol (11.5-14.5) % Plt Count (130-400) K/uL MPV (9.4-12.4) fL Immature Gran % (Auto) % Neut % (Auto) % Lymph % (Auto) % [place] % (Auto) % Eos % (Auto) % Baso % (Auto) % Neut # (Auto) (1.4-6.5) K/uL Lymph # (Auto) (1.2-3.4) K/uL [place] # (Auto) (0.24-0.82) K/uL Eos # (Auto) (0-0.50) K/uL Baso # (Auto) (0-0.2) K/uL Immature Gran # (Auto) (0.00-0.02) K/uL PT (9.0-12.0) Seconds INR (0.9-1.1) APTT (21.0-31.0) Seconds PTT Ratio Sodium (136-145) mmol/L Potassium (3.5-5.1) mmol/L Chloride (98-107) mmol/L Carbon Dioxide (21-32) mmol/L Anion Gap (3-11) BUN (6-23) mg/dl Creatinine (0.6-1.4) mg/dl Est Cr Clr Drug Dosing ml/min Est GFR ( Amer) ml/min Est GFR (Non-Af Amer) ml/min BUN/Creatinine Ratio (10-20) Glucose (70-99(Fasting)) mg/dl Calcium (8.5-10.1) mg/dl Total Creatine Kinase (30-223) U/L Troponin I High Sens (0-20) pg/ml B-Natriuretic Peptide (0-100) pg/ml Lipase (11-82) U/L Urine Color Urine Appearance (Clear) Urine pH (4.5-7.5) Ur Specific [place] (1.000-1.030) Urine Protein (Negative) Urine Glucose (UA) (Negative) Urine Ketones (Negative) Urine Blood (Negative) Urine Nitrite (Negative) Urine Bilirubin (Negative) Urine Urobilinogen (Negative) Ur Leukocyte Esterase (Negative) Anaplasma Smear Babesia Smear Lyme Disease IgG Ab (Negative) Lyme Disease IgM Ab (Negative) SARS-CoV-2, RNA, NAAT NEGATIVE (NEGATIVE) Imaging Data Radiologist's Impression: Chest X-Ray 04/16/22 19:02 XR chest 2V PA/lateral CLINICAL HISTORY: Chest Pain TECHNIQUE: 2 views of the chest were obtained. Comparison: Comparison is made to CTA chest 04/01/2022 FINDINGS: No lines and tubes are seen. Calcified aortic knob is seen. Lungs are underinflated but clear. No evidence of pleural effusion or pneumothorax. De generative changes are seen in the thoracic spine. IMPRESSION: No acute chest disease. ACT 112: Negative or not required by law. Electronically signed by: Silvio Rowe M.D. 04/16/2022 8:39 PM US RENAL: The kidneys are unremarkable. No stones or hydronephrosis. Bladder onlypartiallyfilled. Ureteral jets were not seen. Impression:No acute findings. Radiologist: Matias Wells M.D. Study ready at 21:55 and i nitial results transmitted at 22:04 ECG Data Indication: + other (swelling) Rate (beats per minute): 68 Rhythm: + normal sinus ECG Intervals/blocks: + Normal QRS, + Normal RI and + Normal QT-c ECG ST segments: + Normal ST segments MDM Narrative Vital signs stable. Labs show white blood cell count of 10.54. Hemoglobin 15. Platelet count 305. Coagulation studies are within normal limits. Creatinine i s 1.87 more than double his previous creatinine earlier this month. Blood smear negative. Lyme screen negative. Patient continues to report that his leg is itching. He reports no headache. No fevers. Given the patient's petechial rash and his acute kidney injury, patient will be admitted to the [facility] hospitalist team. Ultrasound of his kidneys and urinalysis ordered for his acute kidney injury. [facility] Impression & Plan RAJ (acute kidney injury), Rash Discharge Plan Visit Data Chief Complaint: Swelling/Edema to Extremity Stated Complaint: LEG SWELLING WITH RASH,REFERRED BY DOC ED Provider: Abhijit Fong Discharge Problem: RAJ (acute kidney injury), Rash Patient Disposition: Being Evaluated by Hospitalist Forms Stand Alone Forms: My [facility] Prescriptions Prescriptions: No Action zinc acetate 50 mg (zinc) Capsule 50 mg PO DAILY omega 6-dxc-vag-fish oil [Fish Oil] 1,000 mg (120 mg-180 mg) Capsule 1 cap PO DAILY Eliquis 5 mg tablet 5 mg PO BID Qty: 74 0RF aspirin 81 mg capsule 81 mg PO DAILY Qty: 30 0RF multivitamin Tablet 1 tab PO QAM cholecalciferol (vitamin D3) [Vitamin D3] 125 mcg (5,000 unit) Tablet 125 mcg PO QAM coQ10 (ubiquinol) 100 mg Capsule 100 mg PO QAM torsemide 20 mg tablet 20 mg PO DAILY Rx Instructions: PER PT "STARTED TODAY, 04/16/22". diclofenac sodium 75 mg tablet,delayed release (DR/EC) 75 mg PO BID Referrals Referrals: Jeffry Knapp MD [Primary Care Provider] -
[2022-04-16 19:46] LABS: Basophils # (auto) 0.06 K/uL (0-0.2); Basophils % (auto) 0.6 %; Eosinophils # (auto) 0.35 K/uL (0-0.50); Eosinophils % (auto) 3.3 %; Hematocrit (blood only) 39.6 % (40.1-51.0); Immature Granulocytes # (auto) 0.13 K/uL (0.00-0.02); Immature Granulocytes % (auto) 1.2 %; Lymphocytes # (auto) 1.71 K/uL (1.2-3.4); Lymphocytes % (auto) 16.2 %; Mean Corpuscular Hgb Conc 37.9 g/dL (32.0-36.0); Mean Corpuscular Volume 92.5 fL (80.0-100.0); Mean Platelet Volume 10.4 fL (9.4-12.4); Monocytes # (auto) 0.94 K/uL (0.24-0.82); Monocytes % (auto) 8.9 %; Neutrophils # (auto) 7.35 K/uL (1.4-6.5); Neutrophils % (auto) 69.8 %; Platelet Count 305 K/uL (130-400); RDW Coefficient of Variation 12.2 % (11.5-14.5); RDW Standard Deviation 41.3 fL (36.4-46.3); Red Blood Count 4.28 M/uL (4.63-6.08); White Blood Count 10.54 K/ul (4.8-10.8)
[2022-04-16 19:58] LABS: INR 1.3 (0.9-1.1); Partial Thromboplastin Time 27.8 Seconds (21.0-31.0); Prothrombin Time 13.2 Seconds (9.0-12.0)
[2022-04-16 20:29] LABS: BUN Creatinine Ratio 26.2 (10-20); Calcium 10.2 mg/dl (8.5-10.1); Est GFR (African American) 41.6 ml/min; Est GFR (Non-African American) 35.9 ml/min
[2022-04-16 20:33] LABS: Lyme Ab IgG w/WB Rflx Negative (Negative); Lyme Ab IgM w/WB Rflx Negative (Negative)
--- NOTE | 2022-04-16 20:40 | XRay Report ---
XR chest 2V PA/lateral CLINICAL HISTORY: Chest Pain TECHNIQUE: 2 views of the chest were obtained. Comparison: Comparison is made to CTA chest 04/01/2022 FINDINGS: No lines and tubes are seen. Calcified aortic knob is seen. Lungs are underinflated but clear. No mandi dence of pleural effusion or pneumothorax. Degenerative changes are seen in the thoracic spine. IMPRESSION: No acute chest disease. ACT 112: Negative or not required by law. Electronically signed by: Silvio Rowe M.D. 04/16/2022 8:39 PM
[2022-04-16 21:02] LABS: Troponin I High Sensitivity 9.4 pg/ml (0-20)
[2022-04-16] MEDS ORDERED: diphenhydrAMINE 50 MG/ML VIAL IV STA (21:07)
[2022-04-16] MEDS ORDERED: SODIUM CHLORIDE 0.9% 1000ML 1,000 ML IV STA (21:20)
--- NOTE | 2022-04-16 21:20 | History & Physical Report ---
Date of Service April 16, 2022 Assessment & Plan (1) Petechial rash: (2) Pulmonary embolism: (3) DVT (deep venous thrombosis): (4) RAJ (acute kidney injury): (5) Diabetes: (6) Sleep apnea: (7) Dyslipidemia: Plan This is a 71-year-old male with PMH of recent extensive DVT/PE discharged on Eliquis, type 2 diabetes, hyperlipidemia, KALEY and other medical problems listed below who presents from PCP's office with rash. Please see Dr. Olmstead's addendum for assessment and plan. History of Present Illness Chief Complaint: Rash Primary Care Provider: Jeffry Knapp MD This is a 71-year-old male with PMH of recent extensive DVT/PE following discharged on Eliquis, type 2 diabetes, hyperlipidemia, KALEY and other medical problems listed below who presents from PCP's office with rash. Patient was admitted 2 weeks ago and found to have extensive DVT and PE and was transitioned to Eliquis prior to discharge home. Was recommended to undergo hematology eval as an outpatient for hypercoagulability work-up, which is scheduled for June 2022. 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 Patient felt well for 4 to 5 days but when he returned to work, where he is consistently standing, right leg became more swollen and painful. Then noted a red, itchy rash on right lower extremity 4 days ago which is spread up to right thigh, across abdomen and now over to left lower extremity today. Denies any jaciel bleeding. Was seen by PCP earlier today, who had concern for petechiae formation and discussed with hematology, who recommended patient present to ED for further evaluation. Patient with discomfort to right lower extremity as well as itching rash. Did take 1 dose of torsemide 20 mg this morning which he was prescribed by PCP since discharge. States he has had decreased appetite and likely decreased oral intake of fluids. Denies use of NSAIDs for discomfort in lower extremity. Denies any numbness or tingling of lower extremity. No weakness. No fever, chills, headache, chest pain, shortness of breath, nausea, vomiting, abdominal pain, dysuria, diarrhea or constipation. In ED, patient afebrile. No leukocytosis. Creatinine elevated at 1.7 (Cr of 0.85 two weeks prior). Lyme serology negative. COVID-negative. Allergies Allergy/AdvReac Type Severity Reaction Status Date / Time apixaban [From Eliquis] Allergy Mild Rash Verified 04/16/22 22:43 Home Medications Medication Instructions Recorded Confirmed Type cholecalciferol (vitamin D3) 125 125 mcg PO QAM 10/11/20 04/16/22 History mcg (5,000 unit) tablet (Vitamin D3) coQ10 (ubiquinol) 100 mg capsule 100 mg PO QAM 10/11/20 04/16/22 History multivitamin 1 tab PO QAM 10/11/20 04/16/22 History omega 7-eje-cmg-fish oil 1,000 mg 1 cap PO DAILY 04/01/22 04/16/22 History (120 mg-180 mg) capsule (Fish Oil) zinc acetate 50 mg (zinc) capsule 50 mg PO DAILY 04/01/22 04/16/22 History apixaban 5 mg tablet (Eliquis) 5 mg PO BID #74 tabs 04/02/22 04/16/22 Rx aspirin 81 mg capsule 81 mg PO DAILY #30 caps 04/03/22 04/16/22 Rx diclofenac sodium 75 mg 75 mg PO BID 04/16/22 04/16/22 History tablet,delayed release torsemide 20 mg tablet 20 mg PO DAILY 04/16/22 04/16/22 History Past Med/Surg History Medical History Diabetes Dvt femoral (deep venous thrombosis) S/P LONG AIRLINE [id number] AND NO ISSUES SINCE Dyslipidemia Per records GERD (gastroesophageal reflux disease) UNDER CONTROL History of COVID-19 DX'D THIRD WEEK 04/2020 [facility]-FEVER, FATIGUE-RECOVERED AT HOME-NO RESIDUAL SYMPTOMS Hypertension Per records Sleep apnea STOPPED USING CPAP Surgical History History of adenoidectomy History of colonoscopy History of nasal septoplasty History of tonsillectomy Family History Sister Family hx of colon cancer Other No family history of adverse response to anesthesia Social History Smoking Status: Former smoker Second Hand Exposure: No; Hx Alcohol Use: Yes Alcohol type: beer Hx Substance Use: No Preferred Language: Estonian Communication Ability: Effective 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 Physical Exam Physical Exam: General Appearance: WD/WN, vitals as above, NAD, lying in bed, pleasant, conversing easily, facial flushing Head: normocephalic, atraumatic Eyes: normal inspection, PERRL, conjunctivae normal, anicteric sclerae ENT: external ear and nose normal, oropharynx normal Neck: normal visual inspection, trachea midline, no thyromegaly Respiratory: normal respiratory effort, lungs clear to auscultation, no wheeze, rales, rhonchi. No accessory muscle use Cardiovascular: regular rate, rhythm, no murmur, normal peripheral pulses. Vessels: no JVD Abdomen/GI: normal bowel sounds, soft, nontender, no hepatosplenomegaly Extremities/Musculoskeletal: no cyanosis or clubbing, extremities motor strength 5/5. RLE >LLE with 1+ edema Neurologic: PERRL, EOMI, accommodation nl, no face palsy, no dysarthria, CN's II-XI intact bilaterally and moves all extremities Psychiatric: A+Ox3, euthymic affect Skin: no rashes, normal color, warm/dry. + Petechial rash of RLE spreading up the R thigh as well as a few pinpoint lesions on LLE. +Chest and back with urticarial rash. +pruritic Results & Data Results & Data ([facility]) Vital Signs (Past 12 Hours) Vital Signs Temp Pulse Pulse Resp BP BP Pulse Ox 04/16/22 19:34 96 04/16/22 19:34 81 18 141/82 H 96 04/16/22 18:51 36.4 C L 100 H 20 143/95 H 95 O2 Del Method 04/16/22 19:34 Room Air 04/16/22 19:34 Room Air 04/16/22 18:51 Room Air Laboratory Results Short CBC 04/16/22 Range/Units 19:32 WBC 10.54 (4.8-10.8) K/ul Hgb 15.0 (14.0-18.0) g/dl Hct 39.6 L (40.1-51.0) % Plt Count 305 (130-400) K/uL BMP 04/16/22 19:32 Sodium 135 L Potassium 4.0 Chloride 98 Carbon Dioxide 26 BUN 49 H Creatinine 1.87 H Glucose 203 H Calcium 10.2 H Cardiac Enzymes 04/16/22 Range/Units 19:32 Total Creatine Kinase 122 (30-223) U/L Diagnostic Findings Chest X-Ray 04/16/22 19:02 XR chest 2V PA/lateral CLINICAL HISTORY: Chest Pain TECHNIQUE: 2 views of the chest were obtained. Comparison: Comparison is made to CTA chest 04/01/2022 FINDINGS: No lines and tubes are seen. Calcified aortic knob is seen. Lungs are underinflated but clear. No evidence of pleural effusion or pneumothorax. Degenerative changes are seen in the thoracic spine. IMPRESSION: No acute chest disease. ACT 112: Negative or not required by law. Electronically signed by: Silvio Rowe M.D. 04/16/2022 8:39 PM Supervising Physician Co-Signing Physician Notes IM ATTENDING : Patient seen and examined. History obtained from patient and records. Preceding documentation by Ms. Scarlett Lopez PA-C reviewed. In addition, patient's last dose of Eliquis was at 4 PM today. Rash improving after first dose of Benadryl administered at the ER as per patient. 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 Loratadine for Eliquis hypersensitivity. Consider steroid course if rash not improving a.m. May benefit from Dermatology consultation if rash unimproved in AM.. Weight-based Lovenox 12 hours after last dose of Eliquis while Eliquis on hold. Alternative oral anticoagulation. Consider phone consultation with [facility] Hematology for further recommendations. Basal bolus insulin, ISS BG goal 1 10-1 40, carb count coverage DVT prophylaxis. Weight-based Lovenox Full code Text document was generated using [employer] voice recognition software. It may contain grammatical or spelling errors. Kindly contact undersigned for clarification of any documentation item in question.
[2022-04-16 21:53] LABS: Appearance Urine Clear (Clear); Bacteria Urine Automated Negative (Negative); Bilirubin Urine Negative (Negative); Blood Urine Negative (Negative); Color Urine Yellow; Epithelial Cell Urine Auto >30 /lpf (0-5); Glucose Urine UA Negative (Negative); Ketones Urine 1+ (Negative); Leukocyte Esterase Urine Negative (Negative); Nitrite Urine Negative (Negative); Protein Urine 1+ (Negative); RBC Urine Automated 0-4 /hpf (0-4); Specific Gravity Urine 1.018 (1.000-1.030); Urobilinogen Urine Negative (Negative)
[2022-04-16] MEDS ORDERED: LORATADINE 10 MG TAB PO STA (22:21)
[2022-04-16 22:52] LABS: Cast Urine Automated >30 /lpf (0-5)
[2022-04-16] MEDS ORDERED: CARBOHYDRATES FOR HYPOGLYCEMIA PO PRN (23:35)
[2022-04-16] MEDS ORDERED: GLUCAGON FOR INJ 1 MG VIAL SQ PRN (23:35)
[2022-04-16] MEDS ORDERED: traMADol HCL 50 MG TABLET PO PRN (23:35)
[2022-04-16] MEDS ORDERED: GLUCOSE 40% GEL 15 GM TUBE PO PRN (23:35)
[2022-04-16] MEDS ORDERED: GLUCOSE 10 TAB/TUBE PO PRN (23:35)
[2022-04-16] MEDS ORDERED: ACETAMINOPHEN 325 MG TAB PO PRN (23:35)
[2022-04-16] MEDS ORDERED: DEXTROSE 50% 50 ML SYRINGE IV PRN (23:35)
[2022-04-16] MEDS ORDERED: PROMETHAZINE HCL 12.5 MG in SODIUM CHLORIDE 0.9% 50 ML IV PRN (23:35)
[2022-04-17] MEDS: LANTUS PER UNIT CHARGE SQ SCH ×3 (00:31→21:17)
[2022-04-17] MEDS: INSULIN ASPART PER UNIT SC SCH ×5 (00:31→21:16)
[2022-04-17 05:14] LABS: Basophils # (auto) 0.05 K/uL (0-0.2); Basophils % (auto) 0.7 %; Eosinophils # (auto) 0.52 K/uL (0-0.50); Eosinophils % (auto) 6.9 %; Hematocrit (blood only) 34.9 % (40.1-51.0); Immature Granulocytes # (auto) 0.09 K/uL (0.00-0.02); Immature Granulocytes % (auto) 1.2 %; Lymphocytes # (auto) 1.21 K/uL (1.2-3.4); Mean Corpuscular Hemoglobin 34.7 pg (25.0-34.0); Mean Corpuscular Hgb Conc 37.2 g/dL (32.0-36.0); Mean Corpuscular Volume 93.1 fL (80.0-100.0); Mean Platelet Volume 10.4 fL (9.4-12.4); Monocytes # (auto) 0.78 K/uL (0.24-0.82); Monocytes % (auto) 10.3 %; Neutrophils # (auto) 4.89 K/uL (1.4-6.5); Neutrophils % (auto) 64.9 %; Platelet Count 258 K/uL (130-400); RDW Coefficient of Variation 12.3 % (11.5-14.5); RDW Standard Deviation 41.9 fL (36.4-46.3); Red Blood Count 3.75 M/uL (4.63-6.08); White Blood Count 7.54 K/ul (4.8-10.8)
[2022-04-17 05:31] LABS: INR 1.2 (0.9-1.1); Partial Thromboplastin Time 26.6 Seconds (21.0-31.0); Prothrombin Time 12.9 Seconds (9.0-12.0)
[2022-04-17 05:49] LABS: BUN Creatinine Ratio 28.1 (10-20); Creatinine Clr Calc Pharmacy 59.6 ml/min; Est GFR (African American) 65.7 ml/min; Est GFR (Non-African American) 56.7 ml/min; Potassium 4.1 mmol/L (3.5-5.1)
[2022-04-17] MEDS: ENOXAPARIN 100 MG/1ML SYR SQ SCH ×2 (06:39→17:55)
--- NOTE | 2022-04-17 07:26 | Ultrasound Report ---
RENAL ULTRASOUND CLINICAL HISTORY: Acute kidney injury. COMPARISON STUDY: None. TECHNIQUE: Sonography of the kidneys and the urinary bladder was performed. FINDINGS: Right kidney measures 12.3 x 6.2 x 6.7 cm and the left measures 11.5 x 6.5 x 4.9 cm. There is no hydronephrosis. No renal calculi or masses are identified by sonography. Renal echogenicity, si ze and cortical thickness are unremarkable. Bladder is suboptimally assessed given incomplete underdi stention. Bladder wall appears mildly thickened. Ureteral jets were not visualized. IMPRESSION: 1. Unremarkable sonographic appearance of the kidneys. No hydronephrosis. 2. Suspected bladder wall thickening. ACT 112: Negative or not required by law. Electronically signed by: Jordon Mai M.D. 04/17/2022 7:25 AM
[2022-04-17] MEDS: ASPIRIN 81 MG ECTAB PO SCH (08:22)
[2022-04-17] MEDS: MULTIVITAMIN TAB PO SCH (08:23)
[2022-04-17] MEDS ORDERED: LOVENOX TEACHING KIT PRN (09:19)
--- NOTE | 2022-04-17 12:51 | Electrocardiogram Report ---
Test Reason : Blood Pressure : / mmHG Vent. Rate : 091 BPM Atrial Rate : 091 BPM P-R Int : 194 ms QRS Dur : 086 ms QT Int : 352 ms P-R-T Axes : 026 -31 -07 degrees QTc Int : 432 ms Normal sinus rhythm Left axis deviation Inferior infarct (cited on or before 01-APR-2022) Anterolateral infarct (cited on or before 01-APR-2022) Abnormal ECG When compared with ECG of 02-APR-2022 15:03, Questionable change in initial forces of Lateral leads Confirmed by Natalio Burnett ([id number]) on 04/17/2022 12:50:42 PM Referred By: Marilyn John Confirmed By:Natalio Burnett
--- NOTE | 2022-04-17 14:56 | Hospitalist Progress Note ---
Date of Service April 17, 2022 Assessment & Plan (1) Petechial rash: (2) Pulmonary embolism: (3) DVT (deep venous thrombosis): (4) RAJ (acute kidney injury): (5) Diabetes: (6) Sleep apnea: (7) Dyslipidemia: Plan Patient is a 71 yr male with H/O recent extensive DVT/PE discharged on Eliquis, type 2 diabetes, hyperlipidemia, KALEY and other medical problems listed below who presents from PCP's office with rash. 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 Outpatient work-up contemplated KALEY on CPAP Past tobacco abuse DVT Px: Lovenox, Coumadin Code Status Full code Admission and Anticipated Discharge Date Admission Date: April 16, 2022 Subjective Patient is seen and examined at bedside Rash on chest, back resolved Still has minimal rash on right lower extremity Reports chronic neuropathic pain Denies any chest pain, dyspnea, dizziness, nausea, abdominal pain Offers no other complaint Review of Systems Review of Systems: All systems reviewed & are unremarkable except as noted in Subjective Physical Exam Physical Exam: Physical Exam: Vitals signs as noted above General Appearance:Moderately built and nourished, no apparent distress Head: normocephalic, Atraumatic Eyes: normal inspection, EOMI Neck: supple, Trachea midline Respiratory/Chest: Normal breath sounds, CTA, No accessory muscle use Cardiovascular: S1, S2, No murmur Abdomen/GI:Soft, Non tender, Bowel sounds present Extremities/Musculoskeletal:normal inspection, R LE Erythematous rash Neurologic/Psych:AAOX3, grossly no focal neurological deficits, +Hearing impairment Skin: normal color, warm Results & Data Results & Data ([facility]) Vital Signs (Past 12 Hours) Vital Signs Temp Pulse Resp BP Pulse Ox O2 Del Method 04/17/22 11:22 37.2 C 85 20 116/72 94 Room Air 04/17/22 07:25 36.6 C 82 20 121/77 95 Room Air Laboratory Results Short CBC 04/16/22 04/17/22 Range/Units 19:32 04:32 WBC 10.54 7.54 (4.8-10.8) K/ul Hgb 15.0 13.0 L (14.0-18.0) g/dl Hct 39.6 L 34.9 L (40.1-51.0) % Plt Count 305 258 (130-400) K/uL BMP 04/16/22 04/17/22 19:32 04:32 Sodium 135 L 137 Potassium 4.0 4.1 Chloride 98 103 Carbon Dioxide 26 28 BUN 49 H 36 H Creatinine 1.87 H 1.28 D Glucose 203 H 263 H Calcium 10.2 H 9.0 Cardiac Enzymes 04/16/22 Range/Units 19:32 Total Creatine Kinase 122 (30-223) U/L Urine 04/16/22 Range/Units 21:19 Urine Color Yellow Urine Appearance Clear (Clear) Urine pH 5.0 (4.5-7.5) Ur Specific Willis 1.018 (1.000-1.030) Urine Protein 1+ H (Negative) Urine Glucose (UA) Negative (Negative)
[2022-04-17] MEDS ORDERED: diphenhydrAMINE HCL 25 MG/10 ML UDC PO PRN (15:28)
[2022-04-17] MEDS ORDERED: WARFARIN SOD 5 MG TAB PO SCH (16:00)
[2022-04-17] MEDS ORDERED: LORATADINE 10 MG TAB PO SCH (21:00)
[2022-04-18] MEDS: ENOXAPARIN 100 MG/1ML SYR SQ SCH (06:36)
[2022-04-18 07:07] LABS: BUN Creatinine Ratio 21.3 (10-20); Calcium 8.6 mg/dl (8.5-10.1); Creatinine Clr Calc Pharmacy 85.8 ml/min; Est GFR (African American) 101.1 ml/min; Est GFR (Non-African American) 87.2 ml/min; Potassium 3.8 mmol/L (3.5-5.1)
[2022-04-18 07:11] LABS: Hemoglobin 13.1 g/dl (14.0-18.0)
[2022-04-18 07:24] LABS: INR 1.3 (0.9-1.1); Prothrombin Time 13.3 Seconds (9.0-12.0)
[2022-04-18] MEDS: ASPIRIN 81 MG ECTAB PO SCH (08:35)
[2022-04-18] MEDS: MULTIVITAMIN TAB PO SCH (08:35)
[2022-04-18] MEDS: INSULIN ASPART PER UNIT SC SCH ×2 (08:38→12:09)
[2022-04-18] MEDS: LANTUS PER UNIT CHARGE SQ SCH (08:39)
--- NOTE | 2022-04-18 13:39 | Hospitalist Progress Note ---
Date of Service April 18, 2022 Assessment & Plan (1) Petechial rash: (2) Pulmonary embolism: (3) DVT (deep venous thrombosis): (4) RAJ (acute kidney injury): (5) Diabetes: (6) Sleep apnea: (7) Dyslipidemia: Plan Patient is a 71 yr male with H/O recent extensive DVT/PE discharged on Eliquis, type 2 diabetes, hyperlipidemia, KALEY and other medical problems listed below who presents from PCP's office with rash. Generalized erythematous rash Likely due to Torsemide Vs Eliquis (Both are new meds) Torsemide and Eliquis discontinued Benadryl as needed Rash much improved Acute Kidney Injury Likely due to Torsemide Received IV fluids Cr 1.87>>1.28>0.89 Monitor renal function Avoid Nephrotoxic agents Recent H/O PE, DVT Past history LE DVT in the attributed by patient to travel to [place] Eliquis discontinued Continue Lovenox until INR is therapeutic Continue Coumadin: Plan to give 7.5mg today Monitor INR:1.3 today Advised to follow-up with Coumadin clinic upon discharge Hypertension BP stable monitor DM II HbA1c 8.7 Continue Insulin Monitor BGs 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 Outpatient work-up contemplated AKLEY on CPAP Past tobacco abuse DVT Px: Lovenox, Coumadin Code Status Full code Disposition Home Admission and Anticipated Discharge Date Admission Date: April 16, 2022 Subjective Patient is seen and examined at bedside States feeling well today No new complaints Right leg rash much improved Reports chronic neuropathic pain which is unchanged Denies any chest pain, dyspnea, dizziness, nausea, abdominal pain Eager to get discharged Review of Systems Review of Systems: All systems reviewed & are unremarkable except as noted in Subjective Physical Exam Physical Exam: Physical Exam: Vitals signs as noted above General Appearance:Moderately built and nourished, no apparent distress Head: normocephalic, Atraumatic Eyes: normal inspection, EOMI Neck: supple, Trachea midline Respiratory/Chest: Normal breath sounds, CTA, No accessory muscle use Cardiovascular: S1, S2, No murmur Abdomen/GI:Soft, Non tender, Bowel sounds present Extremities/Musculoskeletal:normal inspection, R LE Erythematous rash improved Neurologic/Psych:AAOX3, grossly no focal neurological deficits, +Hearing impairment Skin: normal color, warm Results & Data Results & Data ([facility]) Vital Signs (Past 12 Hours) Vital Signs Temp Pulse Resp BP BP Pulse Ox O2 Del Method 04/18/22 11:29 36.9 C 83 21 114/79 96 Room Air 04/18/22 10:58 36.5 C 80 18 143/76 H 96 Room Air 04/18/22 07:53 36.9 C 77 18 116/70 97 Room Air Laboratory Results Short CBC 04/18/22 Range/Units 06:17 Hgb 13.1 L (14.0-18.0) g/dl Hct 35.0 L (40.1-51.0) % BMP 04/18/22 06:17 Sodium 136 Potassium 3.8 Chloride 104 Carbon Dioxide 28 BUN 19 Creatinine 0.89 D Glucose 171 H Calcium 8.6
--- NOTE | 2022-04-18 14:06 | Discharge Summary ---
Date of Service April 18, 2022 Admission HPI Per Admitting Provider This is a 71-year-old male with PMH of recent extensive DVT/PE following discharged on Eliquis, type 2 diabetes, hyperlipidemia, KALEY and other medical problems listed below who presents from PCP's office with rash. Patient was admitted 2 weeks ago and found to have extensive DVT and PE and was transitioned to Eliquis prior to discharge home. Was recommended to undergo hematology eval as an outpatient for hypercoagulability work-up, which is scheduled for June 2022. 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 Patient felt well for 4 to 5 days but when he returned to work, where he is consistently standing, right leg became more swollen and painful. Then noted a red, itchy rash on right lower extremity 4 days ago which is spread up to right thigh, across abdomen and now over to left lower extremity today. Denies any jaciel bleeding. Was seen by PCP earlier today, who had concern for petechiae formation and discussed with hematology, who recommended patient present to ED for further evaluation. Patient with discomfort to right lower extremity as well as itching rash. Did take 1 dose of torsemide 20 mg this morning which he was prescribed by PCP since discharge. States he has had decreased appetite and likely decreased oral intake of fluids. Denies use of NSAIDs for discomfort in lower extremity. Denies any numbness or tingling of lower extremity. No weakness. No fever, chills, headache, chest pain, shortness of breath, nausea, vomiting, abdominal pain, dysuria, diarrhea or constipation. In ED, patient afebrile. No leukocytosis. Creatinine elevated at 1.7 (Cr of 0.85 two weeks prior). Lyme serology negative. COVID-negative. Admission Exam Per Admitting Provider Physical Exam Physical Exam: General Appearance:WD/WN, vitals as above, NAD, lying in bed, pleasant, conversing easily, facial flushing Head: normocephalic, atraumatic Eyes:normal inspection, PERRL, conjunctivae normal, anicteric sclerae ENT: external ear and nose normal, oropharynx normal Neck: normal visual inspection, trachea midline, no thyromegaly Respiratory:normal respiratory effort, lungs clear to auscultation, no wheeze, rales, rhonchi. No accessory muscle use Cardiovascular: regular rate, rhythm, no murmur, normal peripheral pulses. Vessels: no JVD Abdomen/GI: normal bowel sounds, soft, nontender, no hepatosplenomegaly Extremities/Musculoskeletal: no cyanosis or clubbing, extremities motor strength 5/5. RLE >LLE with 1+ edema Neurologic: PERRL, EOMI, accommodation nl, no face palsy, no dysarthria, CN's II-XI intact bilaterally and moves all extremities Psychiatric:A+Ox3, euthymic affect Skin: no rashes, normal color, warm/dry. + Petechial rash of RLE spreading up the R thigh as well as a few pinpoint lesions on LLE. +Chest and back with urticarial rash. +pruritic Principal Diagnosis Drug rash Acute kidney injury Pulmonary embolism, deep vein thrombosis Discharge Data Allergies Allergy/AdvReac Type Severity Reaction Status Date / Time apixaban [From EliArchetypes] Allergy Mild Rash Verified 04/16/22 22:43 Consultations 04/16/22 21:08 ED Decision to Admit Stat Procedures Performed Laboratory Results WBC 7.54 K/ul (4.8-10.8) 04/17/22 04:32 RBC 3.75 M/uL (4.63-6.08) L 04/17/22 04:32 Hgb 13.1 g/dl (14.0-18.0) L 04/18/22 06:17 Hct 35.0 % (40.1-51.0) L 04/18/22 06:17 MCV 93.1 fL (80.0-100.0) 04/17/22 04:32 MCH 34.7 pg (25.0-34.0) H 04/17/22 04:32 MCHC 37.2 g/dL (32.0-36.0) H 04/17/22 04:32 RDW Std Deviation 41.9 fL (36.4-46.3) 04/17/22 04:32 RDW Coeff of Carol 12.3 % (11.5-14.5) 04/17/22 04:32 Plt Count 258 K/uL (130-400) 04/17/22 04:32 MPV 10.4 fL (9.4-12.4) 04/17/22 04:32 Immature Gran % (Auto) 1.2 % 04/17/22 04:32 Neut % (Auto) 64.9 % 04/17/22 04:32 Lymph % (Auto) 16.0 % 04/17/22 04:32 [place] % (Auto) 10.3 % 04/17/22 04:32 Eos % (Auto) 6.9 % 04/17/22 04:32 Baso % (Auto) 0.7 % 04/17/22 04:32 Neut # (Auto) 4.89 K/uL (1.4-6.5) 04/17/22 04:32 Lymph # (Auto) 1.21 K/uL (1.2-3.4) 04/17/22 04:32 [place] # (Auto) 0.78 K/uL (0.24-0.82) 04/17/22 04:32 Eos # (Auto) 0.52 K/uL (0-0.50) H 04/17/22 04:32 Baso # (Auto) 0.05 K/uL (0-0.2) 04/17/22 04:32 Immature Gran # (Auto) 0.09 K/uL (0.00-0.02) H 04/17/22 04:32 PT 13.3 Seconds (9.0-12.0) H 04/18/22 06:17 INR 1.3 (0.9-1.1) H 04/18/22 06:17 APTT 26.6 Seconds (21.0-31.0) 04/17/22 04:32 PTT Ratio 1.0 04/17/22 04:32 Sodium 136 mmol/L (136-145) 04/18/22 06:17 Potassium 3.8 mmol/L (3.5-5.1) 04/18/22 06:17 Chloride 104 mmol/L (98-107) 04/18/22 06:17 Carbon Dioxide 28 mmol/L (21-32) 04/18/22 06:17 Anion Gap 4 (3-11) 04/18/22 06:17 BUN 19 mg/dl (6-23) 04/18/22 06:17 Creatinine 0.89 mg/dl (0.6-1.4) D 04/18/22 06:17 Est Cr Clr Drug Dosing 85.8 ml/min 04/18/22 06:17 Est GFR ( Amer) 101.1 ml/min 04/18/22 06:17 Est GFR (Non-Af Amer) 87.2 ml/min 04/18/22 06:17 BUN/Creatinine Ratio 21.3 (10-20) H 04/18/22 06:17 Glucose 171 mg/dl (70-99(Fasting)) H 04/18/22 06:17 POC Glucose 169 mg/dl (70-99) H 04/18/22 11:38 Calcium 8.6 mg/dl (8.5-10.1) 04/18/22 06:17 Total Creatine Kinase 122 U/L (30-223) 04/16/22 19:32 Troponin I High Sens 9.4 pg/ml (0-20) 04/16/22 19:32 B-Natriuretic Peptide 10 pg/ml (0-100) 04/16/22 20:02 Lipase 21 U/L (11-82) 04/16/22 19:32 Urine Color Yellow 04/16/22 21:19 Urine Appearance Clear (Clear) 04/16/22 21:19 Urine pH 5.0 (4.5-7.5) 04/16/22 21:19 Ur Specific [place] 1.018 (1.000-1.030) 04/16/22 21:19 Urine Protein 1+ (Negative) H 04/16/22 21:19 Urine Glucose (UA) Negative (Negative) 04/16/22 21:19 Urine Ketones 1+ (Negative) H 04/16/22 21:19 Urine Blood Negative (Negative) 04/16/22 21:19 Urine Nitrite Negative (Negative) 04/16/22 21:19 Urine Bilirubin Negative (Negative) 04/16/22 21:19 Urine Urobilinogen Negative (Negative) 04/16/22 21:19 Ur Leukocyte Esterase Negative (Negative) 04/16/22 21:19 Urine WBC (Auto) 1-5 /hpf (0-5) 04/16/22 21:19 Urine RBC (Auto) 0-4 /hpf (0-4) 04/16/22 21:19 U Hyaline Cast (Auto) >30 /lpf (0-5) H 04/16/22 21:19 U Epithel Cells (Auto) >30 /lpf (0-5) H 04/16/22 21:19 Urine Bacteria (Auto) Negative (Negative) 04/16/22 21:19 Granular Casts 1-5 /lpf (0) H 04/16/22 21:19 Anaplasma Smear See Comment 04/16/22 19:32 Babesia Smear See Comment 04/16/22 19:32 Lyme Disease IgG Ab Negative (Negative) 04/16/22 19:32 Lyme Disease IgM Ab Negative (Negative) 04/16/22 19:32 SARS-CoV-2, RNA, NAAT NEGATIVE (NEGATIVE) 04/16/22 21:19 Impressions Chest X-Ray 04/16/22 19:02 XR chest 2V PA/lateral CLINICAL HISTORY: Chest Pain TECHNIQUE: 2 views of the chest were obtained. Comparison: Comparison is made to CTA chest 04/01/2022 FINDINGS: No lines and tubes are seen. Calcified aortic knob is seen. Lungs are underinflated but clear. No evidence of pleural effusion or pneumothorax. Degenerative changes are seen in the thoracic spine. IMPRESSION: No acute chest disease. ACT 112: Negative or not required by law. Electronically signed by: Silvio Rowe M.D. 04/16/2022 8:39 PM Renal Ultrasound 04/16/22 21:07 RENAL ULTRASOUND CLINICAL HISTORY: Acute kidney injury. COMPARISON STUDY: None. TECHNIQUE: Sonography of the kidneys and the urinary bladder was performed. FINDINGS: Right kidney measures 12.3 x 6.2 x 6.7 cm and the left measures 11.5 x 6.5 x 4.9 cm. There is no hydronephrosis. No renal calculi or masses are identified by sonography. Renal echogenicity, size and cortical thickness are unremarkable. Bladder is suboptimally assessed given incomplete underdistention. Bladder wall appears mildly thickened. Ureteral jets were not visualized. IMPRESSION: 1. Unremarkable sonographic appearance of the kidneys. No hydronephrosis. 2. Suspected bladder wall thickening. ACT 112: Negative or not required by law. Electronically signed by: Jordon Mai M.D. 04/17/2022 7:25 AM Ordered Studies 04/16/22 21:07 US renal/blad retro comp Urgent Hospital Course (1) Petechial rash: (2) Pulmonary embolism: (3) DVT (deep venous thrombosis): (4) RAJ (acute kidney injury): (5) Diabetes: (6) Sleep apnea: (7) Dyslipidemia: Plan Patient is a 71 yr male with H/O recent extensive DVT/PE discharged on Eliquis, type 2 diabetes, hyperlipidemia, KALEY and other medical problems listed below who presents from PCP's office with rash. Generalized erythematous rash Likely due to Torsemide Vs Eliquis (Both are new meds) Torsemide and Eliquis discontinued Benadryl as needed Rash much improved Acute Kidney Injury Likely due to Torsemide Received IV fluids Cr 1.87>>1.28>0.89 Monitor renal function Avoid Nephrotoxic agents Recent H/O PE, DVT Past history LE DVT in the attributed by patient to travel to [place] Eliquis discontinued Continue Lovenox until INR is therapeutic Continue Coumadin: Plan to give 7.5mg today Monitor INR:1.3 today Advised to follow-up with Coumadin clinic upon discharge Hypertension BP stable monitor DM II HbA1c 8.7 Continue Insulin Monitor BGs 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 Outpatient work-up contemplated KALEY on CPAP Past tobacco abuse DVT Px: Lovenox, Coumadin Code Status Full code Disposition Home Total Time Total Time Spent Total Time Spent (In Minutes): 49 minutes Discharge Plan Discharge Items Patient Disposition: Home - Self-Care Reason For Visit: ARF Discharge Diagnosis: Drug rash Acute kidney injury Pulmonary embolism, deep vein thrombosis Activity: Per Instructions section Exercise/Sports: Wait until after follow-up appointment Non-emergency contact: Primary Care Provider and Specialist Call non-emergency contact if: you have any medication questions, your symptoms worsen, your pain is concerning for you and you have a fever Follow-up/Referrals: [facility] [Other] (The [facility]agulation Clinic (also referred to as [facility] clinic) will call you with further instructions regarding your lovenox and coumadin dosing. ) Jeffry Knapp MD [Primary Care Provider] - (Date & Time 04/23/2022 3:00 PM Provider Jeffry Knapp MD Department Family Medicine [facility] ) Diet: Carb Consistent or DM2 and Heart Healthy Addtl Attending Provider Instructions: --Follow-up with your primary care physician on 04/23/2022 3:00 PM --Follow-up with Coumadin clinic tomorrow (04/19/22) for adjustment of your Coumadin dose and monitoring your PT/INR. --Get Blood test (PT/INR) on 04/19/22 and follow-up with Coumadin clinic as advised for further instructions. --- Your INR today (04/18/22) is 1.3. Given Coumadin 7.5 mg today ---Your Target INR is between 2.0-3.0 --- Continue Lovenox 90 mg subcutaneously twice a day until your INR is therapeutic between 2.0-3.0. ( Coumadin clinic will decide on duration of Lovenox treatment) --- Continue Coumadin as per the instructions from Coumadin clinic. --- Your torsemide, Eliquis are discontinued as likely caused drug reaction. Do not take group of medications belonging to NSAIDs group -can cause worsening of your kidney function and increases your risk for bleeding. List Of these medications includes but not limited to: Diclofenac Ibuprofen, Motrin, Advil Toradol,ketorolac Naproxen, Aleve, Naprosyn You can take Tylenol as needed for pain or fever When buying [id number] pain medications please consult with pharmacy if you are not sure regarding ingredients, as a lot of the pain medications have combination of NSAIDs and Tylenol. Seek immediate medical attention if your symptoms reoccur or worsen Please take all medications as instructed on discharge list below. Please call if you have any questions or problems. You can reach a [facility] hospitalist on duty at [facility] 24 hours a day by calling [phone] Pending Studies at Discharge: No Stand-Alone Forms: My [facility], Smoking Cessation Medications and DC Order Prescriptions: New enoxaparin 100 mg/mL Syringe 90 mg subcut Q12H 5 Days Qty: 9 0RF loratadine [Wal-itin] 10 mg Tablet 10 mg PO HS Qty: 5 0RF metformin 500 mg tablet 500 mg PO BID Qty: 60 0RF warfarin 5 mg tablet 5 mg PO UD Qty: 100 0RF Rx Instructions: Follow-up with Coumadin clinic for further instructions warfarin 2.5 mg tablet 2.5 mg PO UD Qty: 100 0RF Rx Instructions: Follow-up with Coumadin clinic for further instructions warfarin 1 mg tablet 1 mg PO UD Qty: 100 0RF Rx Instructions: Follow-up with Coumadin clinic for further instructions diphenhydramine HCl 12.5 mg/5 mL Elixir 25 mg PO Q8H PRNQty: 0 0RF Continued zinc acetate 50 mg (zinc) Capsule 50 mg PO DAILY omega 4-ntl-gso-fish oil [Fish Oil] 1,000 mg (120 mg-180 mg) Capsule 1 cap PO DAILY aspirin 81 mg capsule 81 mg PO DAILY Qty: 30 0RF multivitamin Tablet 1 tab PO QAM cholecalciferol (vitamin D3) [Vitamin D3] 125 mcg (5,000 unit) Tablet 125 mcg PO QAM coQ10 (ubiquinol) 100 mg Capsule 100 mg PO QAM Discontinued Eliquis 5 mg tablet 5 mg PO BID Qty: 74 0RF torsemide 20 mg tablet 20 mg PO DAILY Rx Instructions: PER PT "STARTED TODAY, 04/16/22". diclofenac sodium 75 mg tablet,delayed release (DR/EC) 75 mg PO BID Discharge Orders: Discharge Order (Routine); Ordered 04/18/22 Ordered By: Bobby Beltran Admission Data Admit Date/Time: 04/16/22 22:39 Attending Provider: Bobby Beltran Admit Provider: Marco Olmstead Primary Care Provider: Jeffry Knapp Other Providers: Marco Olmstead
[2022-04-18] MEDS ORDERED: WARFARIN SOD 7.5 MG TAB PO SCH (16:00)
[2022-04-18] MEDS ORDERED: LANTUS PER UNIT CHARGE SQ SCH (21:00)
[2022-04-20 11:11] LABS: Babesia microti DNA Not Detected (Not Detected)
== END 2022-04-18 15:15 | disposition home or self-care (01) ==
LOC: ED 18:48 → 2N 18:48 → SUATTDRO 22:39 → 2N 23:18 → 2W 04-18 10:51